=== PATIENT | male | born 1975 | race American Indian/Alaskan Native ===

== ENCOUNTER 2016-08-14 20:28 | Emergency (ER) | payer SELFPAY ==
[2016-08-14] MEDS ORDERED: TYLENOL ONE (20:32)
[2016-08-14] MEDS ORDERED: TYLENOL PO ONE (20:43)
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
[2016-08-14] MEDS ORDERED: ROXICODONE PO ONE (23:57)
[2016-08-14] MEDS ORDERED: CATAPRES PO ONE (23:57)
[2016-08-15 00:50] LABS: Basophils % (Auto) 0.4 % (0.0-1.8); Eosinophils % (Auto) 1.9 % (0.0-4.3); Hematocrit 50.5 % (35.5-45.6); Hemoglobin 16.5 gm/dl (11.8-15.2); Mean Corpuscular HGB Conc 33 % (32-34); Mean Corpuscular Hemoglobin 28 pg (28-32); Mean Corpuscular Volume 84 fl (84-94); Platelet Count 200 K/mm3 (140-440); Red Blood Count 6.01 M/mm3 (3.65-5.03); Red Cell Distribution Width 13.6 % (13.2-15.2); White Blood Count 4.4 K/mm3 (4.5-11.0)
[2016-08-15 01:04] LABS: Anion Gap 18 mmol/L; BUN/Creatinine Ratio 12.72; Blood Urea Nitrogen 14 mg/dL (9-20); Carbon Dioxide 25 mmol/L (22-30); Chloride 98.3 mmol/L (98-107); Creatine Kinase 205 units/L (55-170); Glucose 93 mg/dL (75-100); Potassium 3.5 mmol/L (3.6-5.0); Sodium 138 mmol/L (137-145)
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
[2016-08-15 02:52] VITALS: BP 162/90
== END 2016-08-15 02:53 | disposition home or self-care (01) ==
LOC: ED 20:28
DX: S41.111A Laceration without foreign body of right upper arm, initial encounter (principal); I16.0 Hypertensive urgency; N28.9 Disorder of kidney and ureter, unspecified; I10 Essential (primary) hypertension; V49.9XXA Car occupant (driver) (passenger) injured in unspecified traffic accident, initial encounter; Y93.89 Activity, other specified; Y99.8 Other external cause status; Y92.89 Other specified places as the place of occurrence of the external cause
CPT/HCPCS: 36415; 80048; 82550; 85025

== ENCOUNTER 2016-08-30 22:18 | Emergency (ER) | payer SELFPAY ==
[2016-08-30] MEDS ORDERED: CATAPRES ONE (22:38)
[2016-08-30] MEDS ORDERED: CATAPRES PO ONE (22:45)
[2016-08-30 23:21] LABS: Basophils % (Auto) 0.4 % (0.0-1.8); Eosinophils % (Auto) 1.6 % (0.0-4.3); Hematocrit 47.9 % (35.5-45.6); Hemoglobin 16.2 gm/dl (11.8-15.2); Mean Corpuscular HGB Conc 34 % (32-34); Mean Corpuscular Hemoglobin 29 pg (28-32); Mean Corpuscular Volume 84 fl (84-94); Platelet Count 195 K/mm3 (140-440); Red Blood Count 5.68 M/mm3 (3.65-5.03); Red Cell Distribution Width 13.5 % (13.2-15.2); White Blood Count 3.9 K/mm3 (4.5-11.0)
[2016-08-30 23:30] LABS: INR 0.92 (0.87-1.13); Partial Thromboplastin Time 25.2 Sec. (24.2-36.6)
[2016-08-30 23:42] LABS: Anion Gap 19 mmol/L; Blood Urea Nitrogen 13 mg/dL (9-20); Calcium 9.1 mg/dL (8.4-10.2); Carbon Dioxide 26 mmol/L (22-30); Chloride 98.9 mmol/L (98-107); Glucose 90 mg/dL (75-100); Potassium 3.7 mmol/L (3.6-5.0); Sodium 140 mmol/L (137-145)
[2016-08-31 01:15] VITALS: BP 173/114
--- NOTE | 2016-08-31 01:19 | Emergency Department Report ---
ED General Adult HPI - General Chief complaint: High BP Stated complaint: RT ARM PAIN Time Seen by Provider: 08/31/16 01:07 Source: patient, RN notes reviewed, old records reviewed Mode of arrival: Ambulatory Limitations: Physical Limitation - History of Present Illness Initial comments: This is a 40-year-old male. He is previously unknown to me. The patient presents to the ER with persistent right arm pain, and weakness in the right biceps muscle. The patient had a crush injury, which was treated at this hospital a few days ago. He was sutured up. He presents to the emergency department for suture removal. He denies headache, neck pain, chest pain, abdominal pain, shortness of breath, nausea, vomiting and diarrhea. The patient denies irritative and obstructive urinary symptoms, but does admit to painless hematuria. -: Gradual Location: right, upper extremity Severity scale (0 -10): 8 Quality: aching Consistency: constant Improves with: rest Worsens with: movement Associated Symptoms: denies: confusion, chest pain, cough, diaphoresis, fever/ chills, headaches, loss of appetite, malaise, nausea/vomiting, rash, shortness of breath, syncope, weakness - Related Data Home Medications Medication Instructions Recorded Confirmed Last Taken Lisinopril [Zestril] 20 mg PO QDAY 12/23/15 12/23/15 Unknown Metoprolol Xl [Metoprolol 50 mg PO QDAY 12/23/15 12/23/15 Unknown SUCCINATE ER TAB] amLODIPine [Norvasc] 5 mg PO DAILY 12/23/15 12/23/15 Unknown Previous Rx's Medication Instructions Recorded Last Taken Type Acetaminophen/Codeine [Tylenol 1 tab PO Q6H PRN #12 tab 08/15/16 Unknown Rx /Codeine # 3 tab] Allergies Allergy/AdvReac Type Severity Reaction Status Date / Time No Known Allergies Allergy Verified 12/23/15 00:00 ED Review of Systems ROS: Stated complaint: RT ARM PAIN Other details as noted in HPI Constitutional: denies: fever, malaise ENT: denies: dental pain, hearing loss, epistaxis Respiratory: denies: cough Cardiovascular: denies: chest pain Gastrointestinal: denies: abdominal pain Genitourinary: hematuria. denies: urgency, dysuria Musculoskeletal: arthralgia, myalgia Skin: denies: lesions Neurological: weakness ED Past Medical Hx - Past Medical History Previous Medical History?: Yes Hx Hypertension: Yes - Surgical History Past Surgical History?: No - Social History Smoking Status: Never Smoker Substance Use Type: None - Medications Home Medications: Home Medications Medication Instructions Recorded Confirmed Last Taken Type Lisinopril [Zestril] 20 mg PO QDAY 12/23/15 12/23/15 Unknown History Metoprolol Xl [Metoprolol 50 mg PO QDAY 12/23/15 12/23/15 Unknown History SUCCINATE ER TAB] amLODIPine [Norvasc] 5 mg PO DAILY 12/23/15 12/23/15 Unknown History Acetaminophen/Codeine [Tylenol 1 tab PO Q6H PRN #12 tab 08/15/16 Unknown Rx /Codeine # 3 tab] ED Physical Exam - General Limitations: No Limitations General appearance: alert, in no apparent distress - Head Head exam: Present: atraumatic, normocephalic - Eye Eye exam: Present: normal appearance, EOMI. Absent: nystagmus - ENT ENT exam: Present: normal exam, normal orophraynx, mucous membranes moist, normal external ear exam - Neck Neck exam: Present: normal inspection, full ROM. Absent: tenderness, meningismus - Respiratory Respiratory exam: Present: normal lung sounds bilaterally. Absent: respiratory distress, wheezes, rales, rhonchi, stridor, chest wall tenderness, accessory muscle use, decreased breath sounds, prolonged expiratory - Cardiovascular Cardiovascular Exam: Present: regular rate, normal rhythm, normal heart sounds. Absent: bradycardia, tachycardia, irregular rhythm, systolic murmur, diastolic murmur, rubs, gallop - GI/Abdominal GI/Abdominal exam: Present: soft, normal bowel sounds. Absent: distended, tenderness, guarding, rebound, rigid, pulsatile mass - Rectal Rectal exam: Present: deferred - Extremities Exam Extremities exam: Present: tenderness (there is tenderness in the right biceps.) , normal capillary refill, other (there is full range of motion to the left upper extremity, into the bilateral lower extremities.). Absent: normal inspection (there is a deformity in the proximal right biceps, when compared to the left side. There is weakness in the right biceps when compared to the left bicep. 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 Sensation is intact to light touch in the deltoid, median, radial, ulnar distribution bilaterally. 2+ pulses noted in the bilateral upper extremities, and the compartments are soft.), full ROM, pedal edema, joint swelling, calf tenderness - Back Exam Back exam: Present: normal inspection, full ROM. Absent: tenderness, CVA tenderness (R), CVA tenderness (L), muscle spasm, paraspinal tenderness, vertebral tenderness - Neurological Exam Neurological exam: Present: alert, oriented X3, normal gait, other (Extraocular movements intact. Tongue midline. No facial droop. Facial sensation intact to light touch in the V1, V2, V3 distribution bilaterally. 5 and 5 strength in 4 extremities.. Sensation is intact to light touch in 4 extremities.). Absent : motor sensory deficit - Psychiatric Psychiatric exam: Present: normal affect, normal mood - Skin Skin exam: Present: warm, dry, intact, normal color, other (sutures are noted in the right upper extremity). Absent: rash ED Course Vital Signs 08/30/16 08/30/16 08/31/16 22:40 22:42 00:14 Temperature 98.6 F Pulse Rate 88 100 H 89 Respiratory 18 23 Rate Blood Pressure 231/158 Blood Pressure [Left] Blood Pressure 231/158 [Right] O2 Sat by Pulse 97 97 Oximetry 08/31/16 08/31/16 08/31/16 00:20 00:26 00:30 Temperature Pulse Rate 89 86 88 Respiratory 22 23 15 Rate Blood Pressure 180/116 180/116 168/118 Blood Pressure [Left] Blood Pressure [Right] O2 Sat by Pulse 98 98 98 Oximetry 08/31/16 08/31/16 08/31/16 00:31 00:34 00:36 Temperature 98.5 F Pulse Rate 89 84 Respiratory 16 16 16 Rate Blood Pressure 168/118 Blood Pressure 178/126 [Left] Blood Pressure [Right] O2 Sat by Pulse 97 98 Oximetry 08/31/16 08/31/16 08/31/16 00:40 00:45 00:50 Temperature Pulse Rate 93 H 85 84 Respiratory 19 20 21 Rate Blood Pressure 168/118 176/124 176/124 Blood Pressure [Left] Blood Pressure [Right] O2 Sat by Pulse 98 98 98 Oximetry 08/31/16 08/31/16 08/31/16 00:56 01:00 01:06 Temperature Pulse Rate 81 80 82 Respiratory 16 23 13 Rate Blood Pressure 176/124 173/114 173/114 Blood Pressure [Left] Blood Pressure [Right] O2 Sat by Pulse 98 97 Oximetry - Reevaluation(s) Reevaluation #1: 08/31/16 02:06 Differential diagnosis: Suture removal, subacute biceps tendon rupture, poorly controlled hypertension, and painless hematuria Assessment and plan: 40-year-old male here for suture removal which I did, without complication, who clinically presents with a subacute biceps tendon rupture, poorly controlled hypertension, and painless hematuria. The patient will be placed in a sling. He is instructed to follow up with outpatient orthopedics. His blood pressure improved while in the emergency department, there is no chest pain or shortness of breath, troponin is sent prior to my evaluation, but as the patient does not have symptoms consistent with acute coronary syndrome, I do not believe he requires an in-hospital acute coronary syndrome risk stratification and evaluation. He should follow up with her primary care doctor for his hypertension/elevated blood pressure. Painless hematuria is appreciated, the patient denies testicular pain, and irritative/obstructive urinary symptoms. The patient should follow-up with an outpatient urology specialist. ED Medical Decision Making - Lab Data Result diagrams: 08/30/16 23:07 08/30/16 23:07 Vital Signs 08/30/16 08/30/16 08/31/16 22:40 22:42 00:14 Temperature 98.6 F Pulse Rate 88 100 H 89 Respiratory 18 23 Rate Blood Pressure 231/158 Blood Pressure [Left] Blood Pressure 231/158 [Right] O2 Sat by Pulse 97 97 Oximetry 08/31/16 08/31/16 08/31/16 00:20 00:26 00:30 Temperature Pulse Rate 89 86 88 Respiratory 22 23 15 Rate Blood Pressure 180/116 180/116 168/118 Blood Pressure [Left] Blood Pressure [Right] O2 Sat by Pulse 98 98 98 Oximetry 08/31/16 08/31/16 08/31/16 00:31 00:34 00:36 Temperature 98.5 F Pulse Rate 89 84 Respiratory 16 16 16 Rate Blood Pressure 168/118 Blood Pressure 178/126 [Left] Blood Pressure [Right] O2 Sat by Pulse 97 98 Oximetry 08/31/16 08/31/16 08/31/16 00:40 00:45 00:50 Temperature Pulse Rate 93 H 85 84 Respiratory 19 20 21 Rate Blood Pressure 168/118 176/124 176/124 Blood Pressure [Left] Blood Pressure [Right] O2 Sat by Pulse 98 98 98 Oximetry 08/31/16 08/31/16 08/31/16 00:56 01:00 01:06 Temperature Pulse Rate 81 80 82 Respiratory 16 23 13 Rate Blood Pressure 176/124 173/114 173/114 Blood Pressure [Left] Blood Pressure [Right] O2 Sat by Pulse 98 97 Oximetry Labs 08/30/16 08/30/16 08/30/16 23:07 23:07 23:07 WBC 3.9 L RBC 5.68 H Hgb 16.2 H Hct 47.9 H MCV 84 MCH 29 MCHC 34 RDW 13.5 Plt Count 195 Lymph % (Auto) 33.4 [place] % (Auto) 11.0 H Eos % (Auto) 1.6 Baso % (Auto) 0.4 Lymph # 1.3 [place] # 0.4 Eos # 0.1 Baso # 0.0 Seg Neutrophils % 53.6 Seg Neutrophils # 2.1 PT 12.3 INR 0.92 APTT 25.2 Sodium 140 Potassium 3.7 Chloride 98.9 Carbon Dioxide 26 Anion Gap 19 BUN 13 Creatinine 1.3 Estimated GFR > 60 BUN/Creatinine Ratio 10.00 Glucose 90 Calcium 9.1 Troponin T < 0.010 Urine Color Urine Turbidity Urine pH Ur Specific [place] Urine Protein Urine Glucose (UA) Urine Ketones Urine Blood Urine Nitrite Urine Bilirubin Urine Urobilinogen Ur Leukocyte Esterase Urine WBC (Auto) Urine RBC (Auto) U Epithel Cells (Auto) 08/30/16 23:58 WBC RBC Hgb Hct MCV MCH MCHC RDW Plt Count Lymph % (Auto) [place] % (Auto) Eos % (Auto) Baso % (Auto) Lymph # [place] # Eos # Baso # Seg Neutrophils % Seg Neutrophils # PT INR APTT Sodium Potassium Chloride Carbon Dioxide Anion Gap BUN Creatinine Estimated GFR BUN/Creatinine Ratio Glucose Calcium Troponin T Urine Color Yellow Urine Turbidity Clear Urine pH 6.0 Ur Specific [place] 1.020 Urine Protein <15 mg/dl Urine Glucose (UA) Neg Urine Ketones Neg Urine Blood Mod Urine Nitrite Neg Urine Bilirubin Neg Urine Urobilinogen 2.0 Ur Leukocyte Esterase Neg Urine WBC (Auto) 2.0 Urine RBC (Auto) 99.0 U Epithel Cells (Auto) < 1.0 - EKG Data -: EKG Interpreted by Ct EKG shows normal: sinus rhythm Rate: normal - EKG Data 08/31/16 02:08 normal sinus, 88 bpm, normal intervals, normal axis, premature ventricular contractions, nonspecific T-wave abnormality, high left ventricular voltage, not morphologically consistent with STEMI, appears unchanged when compared to prior EKG from December 2015 Critical care attestation.: If time is entered above; I have spent that time in minutes in the direct care of this critically ill patient, excluding procedure time. ED Disposition Clinical Impression: Hematuria, Right arm pain, Elevated blood pressure reading Disposition: DISCHARGED TO HOME OR SELFCARE Is pt being admited?: No Does the pt Need Aspirin: No Condition: Stable Instructions: Repairs of the Biceps and Triceps Tendons (ED), Acute Hematuria ( ED), Hypertension (ED) Additional Instructions: Laboratory studies were unremarkable. Physical exam suggestive of ruptured right-sided biceps tendon. Follow up with an orthopedic surgeon within the next week for this. Rest and avoid heavy lifting, and not use the right upper extremity for any tasks unless cleared by an orthopedic surgeon. Blood pressure was noted to be elevated while in the emergency department. Follow-up with the primary care doctor within the next 10-14 days for elevated blood pressure. Long-term complications of hypertension/elevated blood pressure includes stroke, heart attack, disability, , paralysis, loss of quality of life. Dr. David Rabago is a local primary care doctor. Dr. Gómez is a local orthopedic surgeon. Cultures was sent today of the urine, results will be available next 3-5 days. Have a primary care doctor or urology specialist contact the medical records department to obtain culture results. Follow up with the urology specialist within the next month. Dr. Ayers is a local urology specialist. Not following up with urology in a timely fashion may result in an undiagnosed cancer/tumor/malignancy of the urinary tract. Please return to the ER right away with new pain, worsened pain, migration of pain, fevers, chills, chest pain, shortness of breath, confusion, intractable nausea or vomiting, inability to tolerate liquid feeds. Take acetaminophen or ibuprofen [id number] as needed for pain. Referrals: PRIMARY CAREMD [Primary Care Provider] - 3-5 Days DAVID RABAGO MD [Staff Physician] - 3-5 Days HORACIO GÓMEZ MD [Staff Physician] - 3-5 Days SHARON AYERS MD [Staff Physician] - 3-5 Days Forms: Work/School Release Form(ED)
[2016-08-31 01:20] LABS: Bilirubin,Urine NEG (Negative); Blood,Urine MOD (Negative); Ketones,Urine NEG (Negative); Leukocyte Esterase,Urine NEG (Negative); Nitrite,Urine NEG (Negative); Protein,Urine <15 mg/dL mg/dL (Negative)
== END 2016-08-31 02:24 | disposition home or self-care (01) ==
LOC: ED 22:18
DX: M79.601 Pain in right arm (principal); R31.9 Hematuria, unspecified; I10 Essential (primary) hypertension
CPT/HCPCS: 36415; 80048; 81001; 84484; 85025; 85610; 85730; 87086; 93005; 93010

== ENCOUNTER 2020-01-01 11:58 | Emergency (ER) | payer SELFPAY | END 2020-01-01 12:00 | disposition left against medical advice (07) | LOC: ED 11:58 | DX: R00.0 Tachycardia, unspecified (principal); Z53.21 Procedure and treatment not carried out due to patient leaving prior to being seen by health care provider ==

== ENCOUNTER 2020-03-06 05:28 | Observation (INO) | payer SELFPAY ==
[2020-03-06] MEDS ORDERED: ASPIRIN 325 MG TAB PO ONE (05:58)
--- NOTE | 2020-03-06 06:31 | XRay Report ---
CHEST 1 VIEW INDICATION / CLINICAL INFORMATION: Chest Pain. COMPARISON: Chest radiograph 12/19/2019 FINDINGS: SUPPORT DEVICES: None. HEART / MEDIASTINUM: Stable mild cardiomegaly. LUNGS / PLEURA: No significant pulmonary or pleural abnormality. No pneumothorax. ADDITIONAL FINDINGS: No significant additional findings. IMPRESSION: 1. No acute findings and no significant change. Signer Name: Jennifer Benjamin MD Signed: 03/06/2020 6:26 AM Workstation Name: [id number]
[2020-03-06 06:40] LABS: Hematocrit 47.9 % (35.5-45.6); Mean Corpuscular HGB Conc 33 % (32-34); Mean Corpuscular Volume 84 fl (84-94); Platelet Count 145 K/mm3 (140-440); Red Cell Distribution Width 14.5 % (13.2-15.2)
[2020-03-06 06:50] LABS: INR 1.08 (0.87-1.13); Partial Thromboplastin Time 28.5 Sec. (24.2-36.6)
--- NOTE | 2020-03-06 06:53 | Emergency Department Report ---
ED Chest Pain HPI - General Chief Complaint: Chest Pain Stated Complaint: CHEST PAIN Time Seen by Provider: 03/06/20 06:15 Source: patient, EMS Mode of arrival: Stretcher Limitations: No Limitations - History of Present Illness Initial Comments: This is a 44-year-old male who states he goes to the [facility] [place] [facility]. He states he experienced chest pain for the first time this a.m. He describes it as a left pectoral nonradiating tightness that lasted for 15 minutes. Called EMS. He was given nitroglycerin and aspirin. He states he was a bit sweaty and nauseated but did not vomit. He denies having a previous stress test. However on 12/22/2019 he had a nuclear perfusion study that was read as negative for reversible ischemia by Dr. Ace, the clinical data coordinator, that saw him here during his recent hospitalization. At the time of my encounter, he is asymptomatic. Patient does have chronic A. fib. He confirms that he is compliant with his Eliquis. He is on various medications for his "nonischemic cardiomyopathy" and congestive heart failure/hypertension. 12/19 Cardiology consultation: - Patient Problems (1) Atrial fibrillation with RVR Current Visit: Yes Status: Acute Plan to address problem: new onset (2) Non-ischemic cardiomyopathy Current Visit: Yes Status: Acute (3) Acute HFrEF (heart failure with reduced ejection fraction) Current Visit: Yes Status: Acute Plan to address problem: new onset (4) ANNALISE (acute kidney injury) Current Visit: Yes Status: Acute (5) Elevated LFTs Current Visit: No Status: Acute (6) HTN (hypertension) Current Visit: Yes Status: Chronic Qualifiers: Hypertension type: essential hypertension Qualified Code(s): I10 - Essential (primary) hypertension (7) Elevated TSH Current Visit: Yes Status: Acute Plan to address problem: TSH and T4 elevated - will defer to Primary (8) Morbid obesity Current Visit: Yes Status: Chronic (9) HUONG (obstructive sleep apnea) Current Visit: Yes Status: Suspected MD Complaint: chest pain Severity scale (0 -10): 3 Quality: tightness Consistency: now resolved Improves With: nothing Worsens With: nothing Context: other (Nonischemic cardiomyopathy) re: dyspnea, other (Sweating and some nausea) Other Symptoms: denies: cough, fever, syncope Treatments Prior to Arrival: aspirin, nitroglycerin Aspirin use within the Past 7 Days: (0) No - Related Data On Oral Contraceptives: No Previous Rx's Medication Instructions Recorded Last Taken Type Ondansetron [Zofran ODT TAB] 4 mg PO Q8HR PRN #15 tab.rapdis 12/10/19 Unknown Rx traMADoL [Ultram 50 MG tab] 50 mg PO Q6HR PRN #10 tablet 12/10/19 Unknown Rx Apixaban [Eliquis] 5 mg PO Q12HR #60 tablet 12/23/19 Unknown Rx Furosemide [Lasix TAB] 40 mg PO QDAY #60 tablet 12/23/19 Unknown Rx Metoprolol [Lopressor TAB] 100 mg PO BID #60 tablet 12/23/19 Unknown Rx Spironolactone [Aldactone] 25 mg PO QDAY #60 tablet 12/23/19 Unknown Rx hydrALAZINE [Apresoline TAB] 25 mg PO Q8HR #90 tab 12/23/19 Unknown Rx lisinopriL [Zestril TAB] 20 mg PO QDAY #30 12/23/19 Unknown Rx Allergies Allergy/AdvReac Type Severity Reaction Status Date / Time lisinopril Allergy Swelling Verified 03/06/20 05:58 Heart Score - HEART Score History: Moderately suspicious EKG: Non-specific Age: < 45 Risk factors: 1-2 risk factors Troponin: < normal limit HEART Score: 3 - Critical Actions Critical Actions: 0-3 pts:0.9-1.7%risk of adverse cardiac event.Candidate for discharge ED Review of Systems ROS: Stated complaint: CHEST PAIN Other details as noted in HPI Constitutional: denies: chills, fever Eyes: denies: eye pain, vision change ENT: denies: ear pain, throat pain Respiratory: shortness of breath. denies: cough, wheezing Cardiovascular: as per HPI, chest pain. denies: palpitations Endocrine: no symptoms reported Gastrointestinal: nausea (With episode). denies: abdominal pain, vomiting, diarrhea Genitourinary: denies: urgency, dysuria Musculoskeletal: denies: back pain, arthralgia Skin: denies: rash, lesions Neurological: denies: headache, weakness, paresthesias Psychiatric: denies: anxiety, depression Hematological/Lymphatic: denies: easy bleeding, easy bruising ED Past Medical Hx - Past Medical History Previous Medical History?: Yes Hx Hypertension: Yes Hx Congestive Heart Failure: Yes Hx Renal Disease: Yes (Left kidney) Hx HIV: No Additional medical history: A-fib. High Cholesterol - Surgical History Past Surgical History?: No - Social History Smoking Status: Never Smoker Substance Use Type: None - Medications Home Medications: Home Medications Medication Instructions Recorded Confirmed Last Taken Type Ondansetron [Zofran ODT TAB] 4 mg PO Q8HR PRN #15 tab.rapdis 12/10/19 12/20/19 Unknown Rx traMADoL [Ultram 50 MG tab] 50 mg PO Q6HR PRN #10 tablet 12/10/19 12/20/19 Unknown Rx Apixaban [Eliquis] 5 mg PO Q12HR #60 tablet 12/23/19 Unknown Rx Furosemide [Lasix TAB] 40 mg PO QDAY #60 tablet 12/23/19 Unknown Rx Metoprolol [Lopressor TAB] 100 mg PO BID #60 tablet 12/23/19 Unknown Rx Spironolactone [Aldactone] 25 mg PO QDAY #60 tablet 12/23/19 Unknown Rx hydrALAZINE [Apresoline TAB] 25 mg PO Q8HR #90 tab 12/23/19 Unknown Rx lisinopriL [Zestril TAB] 20 mg PO QDAY #30 12/23/19 Unknown Rx ED Physical Exam - General Limitations: No Limitations General appearance: alert, in no apparent distress - Head Head exam: Present: atraumatic, normocephalic - Eye Eye exam: Present: normal appearance. Absent: scleral icterus - ENT ENT exam: Present: mucous membranes moist - Neck Neck exam: Present: normal inspection - Respiratory Respiratory exam: Present: normal lung sounds bilaterally. Absent: respiratory distress - Cardiovascular Cardiovascular Exam: Present: regular rate, irregular rhythm. Absent: systolic murmur, diastolic murmur, rubs, gallop - GI/Abdominal GI/Abdominal exam: Present: soft, normal bowel sounds. Absent: distended, tenderness, guarding, rebound - Rectal Rectal exam: Present: deferred - Extremities Exam Extremities exam: Present: normal inspection - Back Exam Back exam: Present: normal inspection - Neurological Exam Neurological exam: Present: alert, oriented X3, CN II-XII intact. Absent: motor sensory deficit - Psychiatric Psychiatric exam: Present: normal affect, normal mood - Skin Skin exam: Present: warm, dry, intact, normal color. Absent: rash ED Course Vital Signs 03/06/20 03/06/20 03/06/20 05:38 05:46 06:00 Temperature 98.6 F Pulse Rate 90 84 72 Respiratory 25 H 17 15 Rate Blood Pressure 151/99 151/99 O2 Sat by Pulse 96 99 100 Oximetry 03/06/20 03/06/20 03/06/20 06:30 06:37 07:00 Temperature Pulse Rate 65 79 Respiratory 13 18 19 Rate Blood Pressure 143/89 121/87 O2 Sat by Pulse 99 100 Oximetry 03/06/20 03/06/20 07:30 08:00 Temperature Pulse Rate 84 79 Respiratory 23 31 H Rate Blood Pressure 114/94 122/74 O2 Sat by Pulse 100 Oximetry - Reevaluation(s) Reevaluation #1: Patient states he has been having some recurrent chest pain. Admitted by Hospitalist service. 03/06/20 10:13 RANDALL score - Randall Score Age > 65: (0) No Aspirin use within the Past 7 Days: (0) No 3 or more CAD Risk Factors: (0) No 2 or more Angina events in past 24 hrs: (0) No Known CAD with more than 50% Stenosis: (0) No Elevated Cardiac Markers: (0) No ST Deviation Greater than 0.5mm: (0) No RANDALL Score: 0 ED Medical Decision Making - Lab Data Result diagrams: 03/06/20 06:31 03/06/20 06:31 Laboratory Results - last 24 hr 03/06/20 03/06/20 03/06/20 06:31 06:31 06:31 WBC 3.7 L RBC 5.70 H Hgb 16.0 H Hct 47.9 H MCV 84 MCH 28 MCHC 33 RDW 14.5 Plt Count 145 Winn % (Auto) Tripe Washer PT 13.9 INR 1.08 APTT 28.5 Sodium 140 Potassium 3.9 Chloride 105.2 Carbon Dioxide 24 Anion Gap 15 BUN 14 Creatinine 1.4 H Estimated GFR > 60 BUN/Creatinine Ratio 10 Glucose 120 H Calcium 8.8 Magnesium Total Bilirubin Direct Bilirubin Indirect Bilirubin AST ALT Alkaline Phosphatase Troponin T < 0.010 NT-Pro-B Natriuret Pep Total Protein Albumin Albumin/Globulin Ratio 03/06/20 06:31 WBC RBC Hgb Hct MCV MCH MCHC RDW Plt Count Winn % (Auto) PT INR APTT Sodium Potassium Chloride Carbon Dioxide Anion Gap BUN Creatinine Estimated GFR BUN/Creatinine Ratio Glucose Calcium Magnesium 1.90 Total Bilirubin 1.00 Direct Bilirubin 0.2 Indirect Bilirubin 0.8 AST 32 ALT 35 Alkaline Phosphatase 75 Troponin T NT-Pro-B Natriuret Pep 2578 H Total Protein 6.4 Albumin 3.7 L Albumin/Globulin Ratio 1.4 Laboratory Results - last 24 hr 03/06/20 03/06/20 03/06/20 06:31 06:31 06:31 WBC 3.7 L RBC 5.70 H Hgb 16.0 H Hct 47.9 H MCV 84 MCH 28 MCHC 33 RDW 14.5 Plt Count 145 Winn % (Auto) Tripe Washer PT 13.9 INR 1.08 APTT 28.5 D-Dimer < 135.00 Sodium 140 Potassium 3.9 Chloride 105.2 Carbon Dioxide 24 Anion Gap 15 BUN 14 Creatinine 1.4 H Estimated GFR > 60 BUN/Creatinine Ratio 10 Glucose 120 H Calcium 8.8 Magnesium Total Bilirubin Direct Bilirubin Indirect Bilirubin AST ALT Alkaline Phosphatase Troponin T < 0.010 NT-Pro-B Natriuret Pep Total Protein Albumin Albumin/Globulin Ratio 03/06/20 03/06/20 06:31 08:46 WBC RBC Hgb Hct MCV MCH MCHC RDW Plt Count Winn % (Auto) PT INR APTT D-Dimer Sodium Potassium Chloride Carbon Dioxide Anion Gap BUN Creatinine Estimated GFR BUN/Creatinine Ratio Glucose Calcium Magnesium 1.90 Total Bilirubin 1.00 Direct Bilirubin 0.2 Indirect Bilirubin 0.8 AST 32 ALT 35 Alkaline Phosphatase 75 Troponin T < 0.010 NT-Pro-B Natriuret Pep 2578 H Total Protein 6.4 Albumin 3.7 L Albumin/Globulin Ratio 1.4 - EKG Data -: EKG Interpreted by Pr Rate: normal - EKG Data Interpretation: other (Atrial fibrillation controlled ventricular response, left axis deviation, poor R wave progression, LVH) - Radiology Data Radiology results: report reviewed, image reviewed HEART / MEDIASTINUM: Stable mild cardiomegaly. LUNGS / PLEURA: No significant pulmonary or pleural abnormality. No pneumothorax. ADDITIONAL FINDINGS: No significant additional findings. IMPRESSION: 1. No acute findings and no significant change. Critical care attestation.: If time is entered above; I have spent that time in minutes in the direct care of this critically ill patient, excluding procedure time. ED Disposition Clinical Impression: Chronic renal insufficiency, stage II (mild) Chest pain Qualifiers: Chest pain type: unspecified Qualified Code(s): R07.9 - Chest pain, unspecified Cardiomyopathy Qualifiers: Cardiomyopathy type: unspecified Qualified Code(s): I42.9 - Cardiomyopathy, unspecified Disposition: DC-09 OP ADMIT IP TO THIS HOSP Is pt being admited?: Yes Does the pt Need Aspirin: Yes (Given in the field) Condition: Stable Instructions: Chest Pain (ED) Referrals: PRIMARY CARE,MD [Primary Care Provider] - 3-5 Days
[2020-03-06 07:14] LABS: BUN/Creatinine Ratio 10; Blood Urea Nitrogen 14 mg/dL (9-20); Calcium 8.8 mg/dL (8.4-10.2); Hemolysis Index 80
[2020-03-06 07:16] LABS: Albumin 3.7 g/dL (3.9-5); Bilirubin,Direct 0.2 mg/dL (0-0.2)
[2020-03-06] MEDS ORDERED: ONDANSETRON 4 MG/2 ML INJ IV PRN (10:24)
[2020-03-06] MEDS ORDERED: ACETAMINOPHEN 325 MG TAB PO PRN (10:24)
[2020-03-06] MEDS ORDERED: ALBUTEROL 2.5 MG/3 ML NEBU IH PRN (10:24)
[2020-03-06] MEDS ORDERED: MORPHINE 2 MG/1 ML INJ IV PRN (10:24)
--- NOTE | 2020-03-06 10:32 | History and Physical Report ---
History of Present Illness Date of examination: 03/06/20 Date of admission: 03/06/20 Chief complaint: Left-sided chest pain History of present illness: Patient is a 44-year-old -[place] male with known history of hypertension and obesity presenting to the emergency room today complaining of left-sided chest pain which he states is sudden onset. With associated shortness of breath woke him up from sleep today. Patient has had multiple admissions and otherwise normally followed at [facility]. He is supposed to be on a LifeVest and last time he was here stated that he wanted this to be done outpatient. Unfortunately he still does not have the LifeVest. His last known EF was around 15%. He reports compliance with all his medications denies any swelling in his lower extremity. In the ED his blood pressure was noted to be normal vitals at this time. Previous hospitalization indicated elevated liver exams which work-up was unremarkable except for noted possible passive congestion from his underlying heart failure. He is also has had significant problem with uncontrolled hypertension. He denies any nausea vomiting or diarrhea chest pain on the left side is reproducible. He denies any tobacco use. Past History Past Medical History: atrial fib, heart failure, hyperthyroidism, hypertension, other Past Surgical History: No surgical history Social history: no significant social history. denies: smoking, alcohol abuse, IV drug use Family history: no significant family history Medications and Allergies Allergies Allergy/AdvReac Type Severity Reaction Status Date / Time lisinopril Allergy Swelling Verified 03/06/20 05:58 Home Medications Medication Instructions Recorded Confirmed Last Taken Type Ondansetron [Zofran ODT TAB] 4 mg PO Q8HR PRN #15 tab.rapdis 12/10/19 12/20/19 Unknown Rx traMADoL [Ultram 50 MG tab] 50 mg PO Q6HR PRN #10 tablet 12/10/19 12/20/19 Unknown Rx Apixaban [Eliquis] 5 mg PO Q12HR #60 tablet 12/23/19 Unknown Rx Furosemide [Lasix TAB] 40 mg PO QDAY #60 tablet 12/23/19 Unknown Rx Metoprolol [Lopressor TAB] 100 mg PO BID #60 tablet 12/23/19 Unknown Rx Spironolactone [Aldactone] 25 mg PO QDAY #60 tablet 12/23/19 Unknown Rx hydrALAZINE [Apresoline TAB] 25 mg PO Q8HR #90 tab 12/23/19 Unknown Rx lisinopriL [Zestril TAB] 20 mg PO QDAY #30 12/23/19 Unknown Rx Active Meds: Active Medications Acetaminophen (Tylenol) 650 mg PO Q6H PRN PRN Reason: Pain, Mild (1-3) Albuterol (Proventil) 2.5 mg IH Q4HRT PRN PRN Reason: Shortness Of Breath Apixaban (Eliquis) 5 mg PO Q12HR [facility]; Protocol Aspirin (Ecotrin) 325 mg PO QDAY [facility] Atorvastatin Calcium (Lipitor) 40 mg PO QHS [facility] Famotidine (Pepcid) 20 mg IV BID [facility] Furosemide (Lasix) 40 mg IV BID@0600,1800 [facility] Isosorbide Dinitrate (Isordil) 20 mg PO Q8HR [facility] Lisinopril (Zestril) 20 mg PO QDAY [facility] Metoprolol Tartrate (Metoprolol) 100 mg PO BID [facility] Morphine Sulfate (Morphine) 2 mg IV Q4H PRN PRN Reason: Pain, Moderate (4-6) Ondansetron HCl (Zofran) 4 mg IV Q8H PRN PRN Reason: Nausea And Vomiting Sodium Chloride (Sodium Chloride Flush Syringe 10 Ml) 10 ml IV PRN PRN PRN Reason: LINE FLUSH Spironolactone (Aldactone) 25 mg PO QDAY [facility] Review of Systems All systems: negative Constitutional: no weight loss, no weight gain, no fever, no chills Cardiovascular: chest pain (Reproducible), shortness of breath, no edema, no syncope, no lightheadedness Respiratory: shortness of breath, dyspnea on exertion, no cough, no cough with sputum, no congestion, no wheezing, no pleurisy Musculoskeletal: no neck pain, no arm numbness/tingling, no muscle weakness, no myalgias, no atrophy Integumentary: no redness, no jaundice, no boils Exam - Physical Exam Narrative exam: VITAL SIGNS: Reviewed. GENERAL: The patient appears normally developed, Vital signs as documented. HEAD: No signs of head trauma. EYES: Pupils are equal. Extraocular motions intact. EARS: Hearing grossly intact. MOUTH: Oropharynx is normal. NECK: No adenopathy, no JVD. CHEST: Chest with clear breath sounds bilaterally. No wheezes, rales, or rhonchi. CARDIAC: Regular rate and rhythm. S1 and S2, without murmurs, gallops, or rubs. VASCULAR: No Edema. Peripheral pulses normal and equal in all extremities. ABDOMEN: Soft, non tender and non distended. No rebound or guarding, and no masses palpated. Bowel Sounds normal. MUSCULOSKELETAL: Tender to touch on the left pericardium area. Good range of motion of all major joints. Extremities without clubbing, cyanosis or edema. NEUROLOGIC EXAM: Alert and oriented x 3 No focal sensory or strength deficits. Speech normal. Follows commands. PSYCHIATRIC: Mood normal. SKIN: Multiple tattoos detail exam as documented in skin assessment - Constitutional Vitals: Temp Pulse Resp BP Pulse Ox 98.6 F 79 31 H 122/74 100 03/06/20 05:46 03/06/20 08:00 03/06/20 08:00 03/06/20 08:00 03/06/20 07:30 HEART Score - HEART Score EKG: Non-specific Age: < 45 Risk factors: 1-2 risk factors Troponin: Troponin T < 0.010 ng/mL (0.00-0.029) 03/06/20 08:46 Troponin: < normal limit - Critical Actions Critical Actions: 0-3 pts:0.9-1.7%risk of adverse cardiac event.Candidate for discharge Results - Labs CBC & Chem 7: 03/06/20 06:31 03/06/20 06:31 Labs: Laboratory Last Values WBC 3.7 K/mm3 (4.5-11.0) L 03/06/20 06:31 RBC 5.70 M/mm3 (3.65-5.03) H 03/06/20 06:31 Hgb 16.0 gm/dl (11.8-15.2) H 03/06/20 06:31 Hct 47.9 % (35.5-45.6) H 03/06/20 06:31 MCV 84 fl (84-94) 03/06/20 06:31 MCH 28 pg (28-32) 03/06/20 06:31 MCHC 33 % (32-34) 03/06/20 06:31 RDW 14.5 % (13.2-15.2) 03/06/20 06:31 Plt Count 145 K/mm3 (140-440) 03/06/20 06:31 Bland % (Auto) [employer] 03/06/20 06:31 PT 13.9 Sec. (12.2-14.9) 03/06/20 06:31 INR 1.08 (0.87-1.13) 03/06/20 06:31 APTT 28.5 Sec. (24.2-36.6) 03/06/20 06:31 D-Dimer < 135.00 ng/mlDDU (0-234) 03/06/20 06:31 Sodium 140 mmol/L (137-145) 03/06/20 06:31 Potassium 3.9 mmol/L (3.6-5.0) 03/06/20 06:31 Chloride 105.2 mmol/L (98-107) 03/06/20 06:31 Carbon Dioxide 24 mmol/L (22-30) 03/06/20 06:31 Anion Gap 15 mmol/L 03/06/20 06:31 BUN 14 mg/dL (9-20) 03/06/20 06:31 Creatinine 1.4 mg/dL (0.8-1.3) H 03/06/20 06:31 Estimated GFR > 60 ml/min 03/06/20 06:31 BUN/Creatinine Ratio 10 % 03/06/20 06:31 Glucose 120 mg/dL (75-100) H 03/06/20 06:31 Calcium 8.8 mg/dL (8.4-10.2) 03/06/20 06:31 Magnesium 1.90 mg/dL (1.7-2.3) 03/06/20 06:31 Total Bilirubin 1.00 mg/dL (0.1-1.2) 03/06/20 06:31 Direct Bilirubin 0.2 mg/dL (0-0.2) 03/06/20 06:31 Indirect Bilirubin 0.8 mg/dL 03/06/20 06:31 AST 32 units/L (5-40) 03/06/20 06:31 ALT 35 units/L (7-56) 03/06/20 06:31 Alkaline Phosphatase 75 units/L (35-129) 03/06/20 06:31 Troponin T < 0.010 ng/mL (0.00-0.029) 03/06/20 08:46 NT-Pro-B Natriuret Pep 2578 pg/mL (0-450) H 12 06:31 Total Protein 6.4 g/dL (6.3-8.2) 03/06/20 06:31 Albumin 3.7 g/dL (3.9-5) L 03/06/20 06:31 Albumin/Globulin Ratio 1.4 % 12 06:31 Contreras/IV: IV Catheter Type [Left Hand] INT / Saline Lock Assessment and Plan Assessment and plan: Patient is a 44-year-old -[place] male with known history of hypertension and obesity presenting to the emergency room today complaining of left-sided chest pain which he states is sudden onset. With associated shortness of breath woke him up from sleep today. Patient has had multiple admissions and otherwise normally followed at [facility]. He is supposed to be on a LifeVest and last time he was here stated that he wanted this to be done outpatient. Unfortunately he still does not have the LifeVest. His last known EF was around 15%. He reports compliance with all his medications denies any swelling in his lower extremity. In the ED his blood pressure was noted to be normal vitals at this time. Previous hospitalization indicated elevated liver exams which work-up was unremarkable except for noted possible passive congestion from his underlying heart failure. He is also has had significant problem with uncontrolled hypertension. He denies any nausea vomiting or diarrhea chest pain on the left side is reproducible. He denies any tobacco use. Atypical chest pain rule out costochondritis Acute heart failure with reduced ejection fraction Medical noncompliance Morbid obesity Atrial fibrillation without RVR Obstructive sleep apnea Presumed hypothyroidism Nonischemic cardiomyopathy Plan Admit to telemetry Cardiac enzymes per chest pain protocol Pain control Strict I's and O's Resume appropriate home medications including all antihypertensives as patient does have preponderance of going into hypertensive urgency Extensive counseling to the patient Cardiology consultation Start on IV Lasix On discharge once again recommend outpatient sleep study DVT and GI prophylaxis Plan of care discussed in detail with the patient Advance Directives: Yes Plan of care discussed with patient/family: Yes
[2020-03-06 11:08] LABS: Total Cells Counted 100
[2020-03-06 11:09] LABS: Platelet Estimate Consistent w Auto; RBC Morphology Normal
[2020-03-06] MEDS ORDERED: APIXABAN 5 MG TAB ONE (12:19)
[2020-03-06] MEDS ORDERED: METOPROLOL TARTRATE 50 MG TAB ONE (12:19)
[2020-03-06] MEDS ORDERED: FAMOTIDINE 20 MG/2 ML INJ IV ONE (12:19)
[2020-03-06] MEDS: LISINOPRIL 20 MG TAB PO SCH (12:21)
[2020-03-06] MEDS: APIXABAN 5 MG TAB PO SCH ×2 (12:24→22:13)
[2020-03-06] MEDS: METOPROLOL TARTRATE 50 MG TAB PO SCH ×2 (12:25→22:13)
[2020-03-06] MEDS: FAMOTIDINE 20 MG/2 ML INJ IV SCH ×2 (12:28→22:13)
[2020-03-06] MEDS: ISOSORBIDE DINITRATE 20 MG TAB PO SCH ×2 (15:35→22:13)
[2020-03-06 16:38] LABS: BUN/Creatinine Ratio 11; Blood Urea Nitrogen 15 mg/dL (9-20); Calcium 8.6 mg/dL (8.4-10.2); Hemolysis Index 93
[2020-03-06] MEDS: FUROSEMIDE 40 MG/4 ML INJ IV SCH (17:33)
[2020-03-07] MEDS: FUROSEMIDE 40 MG/4 ML INJ IV SCH ×2 (05:41→17:02)
[2020-03-07] MEDS: ISOSORBIDE DINITRATE 20 MG TAB PO SCH ×2 (05:42→14:19)
[2020-03-07 06:03] LABS: Basophils % (Auto) 0.6 % (0.0-1.8); Eosinophils % (Auto) 1.1 % (0.0-4.3); Hematocrit 49.1 % (35.5-45.6); Hemoglobin 16.3 gm/dl (11.8-15.2); Lymphocytes # (Auto) 1.6 K/mm3 (1.2-5.4); Lymphocytes % (Auto) 35.5 % (13.4-35.0); Mean Corpuscular HGB Conc 33 % (32-34); Mean Corpuscular Volume 86 fl (84-94); Monocytes # (Auto) 0.7 K/mm3 (0.0-0.8); Monocytes % (Auto) 15.8 % (0.0-7.3); Platelet Count 149 K/mm3 (140-440); Red Blood Count 5.73 M/mm3 (3.65-5.03); Red Cell Distribution Width 14.8 % (13.2-15.2)
[2020-03-07 06:40] LABS: BUN/Creatinine Ratio 11; Blood Urea Nitrogen 16 mg/dL (9-20); Calcium 8.8 mg/dL (8.4-10.2); Hemolysis Index 74
[2020-03-07] MEDS ORDERED: ASPIRIN EC 325 MG TAB PO SCH (10:00)
[2020-03-07] MEDS ORDERED: METOPROLOL TARTRATE 50 MG TAB PO SCH (10:00)
[2020-03-07] MEDS ORDERED: SPIRONOLACTONE 25 MG TAB PO SCH (10:00)
[2020-03-07] MEDS: APIXABAN 5 MG TAB PO SCH (10:16)
[2020-03-07] MEDS: FAMOTIDINE 20 MG/2 ML INJ IV SCH (10:18)
[2020-03-07] MEDS: LISINOPRIL 20 MG TAB PO SCH (10:18)
--- NOTE | 2020-03-07 12:05 | Discharge Summary ---
Providers - Providers Date of Admission: 03/06/20 10:24 Date of discharge: 03/07/20 Attending physician: LING FLANAGAN 03/06/20 Consult to Cardiac Rehabilitation [CONS] Routine Reason For Exam: Phase I 03/06/20 10:24 Consult to Cardiology [CONS] Routine Consulting Provider: WAGNER MARLOW Reason For Exam: chf, chest pain Primary care physician: ENVIRONMENTAL SAFETY SPECIALIST Hospitalization Reason for admission: Chest pain Condition: Stable Hospital course: Patient is a 44-year-old -Congolese male with known history of hypertension and obesity presenting to the emergency room today complaining of left-sided chest pain which he states is sudden onset. With associated shortness of breath woke him up from sleep today. Patient has had multiple admissions and otherwise normally followed at [facility]. He is supposed to be on a LifeVest and last time he was here stated that he wanted this to be done outpatient. Unfortunately he still does not have the LifeVest. His last known EF was around 15%. He reports compliance with all his medications denies any swelling in his lower extremity. In the ED his blood pressure was noted to be normal vitals at this time. Previous hospitalization indicated elevated liver exams which work-up was unremarkable except for noted possible passive congestion from his underlying heart failure. He is also has had significant problem with uncontrolled hypertension. He denies any nausea vomiting or diarrhea chest pain on the left side is reproducible. He denies any tobacco use. 03/07 patient is alert and oriented and he offers no specific complaints. He denies any chest pain or shortness of breath He is followed at [facility] and apparently he is on LifeVest but he did not bring it to the hospital Troponin x3 in the normal range Discussed with cardiology nurse practitioner Apparently patient was cleared for discharge from their point of view although the consult note is pending at this time Vital sign records show he is bradycardic however he is asymptomatic Again discussed with the cardiology nurse practitioner. She states that the bradycardia was not seen on senior c web developer and she would continue patient's home medications including metoprolol 100 mg twice daily. Patient is medically stable for discharge Atypical chest pain [place] ruled out No further cardiac work-up at this time Cleared for discharge by cardiology Nonischemic cardiomyopathy-compensated On LifeVest Clarified patient home medications He is taking metoprolol XL 50 mg 1-1/2 tablets daily He will resume his home medication instead of 100 mg twice daily Also takes atorvastatin 10 mg Basically patient was told to continue all his home medications History of medical noncompliance Emphasized the importance of compliance with medications Atrial fibrillation without RVR Continue home medications including Eliquis Obstructive sleep apnea Presumed hypothyroidism Patient is not on any medication Follow-up with PCP Disposition: DC-01 TO HOME OR SELFCARE Core Measure Documentation - Palliative Care Palliative Care/ Comfort Measures: Not Applicable - Core Measures Any of the following diagnoses?: heart failure - Heart Failure Discharge Requirements CHELSEA/ARB for LVSD if EF <40%: Yes Beta yajaira at discharge: Yes Exam - Constitutional Vitals: Temp Pulse Resp BP Pulse Ox 97.9 F 75 20 139/85 92 03/07/20 08:12 03/07/20 11:15 03/07/20 11:00 03/07/20 10:18 03/07/20 08:12 General appearance: Present: no acute distress, well-nourished - EENT Eyes: Present: PERRL, EOM intact ENT: hearing intact, clear oral mucosa - Neck Neck: Present: supple, normal ROM - Respiratory Respiratory effort: normal Respiratory: bilateral: CTA - Cardiovascular Rhythm: regular Heart Sounds: Present: S1 & S2 - Extremities Extremities: No edema - Abdominal General gastrointestinal: Present: soft, non-tender. Absent: hepatomegaly, splenomegaly Male genitourinary: Present: deferred - Rectal Rectal Exam: deferred - Integumentary Integumentary: Present: clear - Musculoskeletal Musculoskeletal: strength equal bilaterally - Neurologic Neurologic: no focal deficits Plan Activity: advance as tolerated Weight Bearing Status: Full Weight Bearing Diet: regular, low fat, low cholesterol, low salt Special Instructions: restrict fluid intake to (1200mL/day), record daily weights Follow up with: PRIMARY MD CHYNA [Primary Care Provider] - 3-5 Days WAGNER MARLOW MD [Staff Physician] - 7 Days
--- NOTE | 2020-03-07 12:27 | Consultation ---
History of Present Illness Consult date: 03/07/20 Requesting physician: MIGUEL ANTOINE Consult reason: chest pain, congestive heart failure History of present illness: The patient is a 44YO male with a past medical history of presumed NICMP, HFrEF, LifeVest in place (although pt left LifeVest at home on his bed when the ambulance came to get him yesterday), atrial fibrillation, anticoagulated with Eliquis, HTN, obesity, suspected HUONG, NSVT. He reports that he is regularly followed by [place] [facility]. He presented with c/o intermittent chest pain since yesterday morning. He states that the pain awoke him from sleep. He describes the pain as an intermittent precordial stabbing pain which is aggravated by deep inspiration, coughing and by palpation of the chest wall. He denies any SOB, palpitations, n/v, diaphoresis, dizziness or syncope. He denies any overt signs or symptoms of acutely decompensated HF. On evaluation, he states the pain has resolved. Lexiscan MPI stress test 12/22/2019 - neg for ischemia. tte done 12/2019 showed EF 15-20%, LV mod dilated, mild MR. Past History Past Medical History: atrial fib, heart failure, hyperthyroidism, hypertension, other Past Surgical History: No surgical history Social history: no significant social history. denies: smoking, alcohol abuse, IV drug use Family history: no significant family history Medications and Allergies Allergies Allergy/AdvReac Type Severity Reaction Status Date / Time lisinopril Allergy Swelling Verified 03/06/20 05:58 Home Medications Medication Instructions Recorded Confirmed Last Taken Type ALBUTEROL NEB's 1 unit INHALATION PRN 03/06/20 03/06/20 Unknown History Apixaban [Eliquis starter pack] 5 mg PO QDAY 03/06/20 03/06/20 Unknown History AtorvaSTATin 10 mg PO QDAY 03/06/20 03/06/20 Unknown History Furosemide [Lasix TAB] 20 mg PO QDAY 03/06/20 03/06/20 Unknown History Isosorbide Dinit/Hydralazine 1 unit PO Q8H 03/06/20 03/06/20 Unknown History [Bidil 20 mg-37.5 mg Tablet] Losartan [Cozaar] 25 mg PO QDAY 03/06/20 03/06/20 Unknown History Metoprolol 75 mg PO QDAY 03/06/20 03/06/20 Unknown History Apixaban [Eliquis] 5 mg PO Q12HR tablet 03/07/20 Unknown Rx Aspirin EC [Ecotrin] 325 mg PO QDAY tablet 03/07/20 Unknown Rx AtorvaSTATin [Lipitor] 40 mg PO QHS tablet 03/07/20 Unknown Rx Famotidine [Pepcid] 20 mg PO BID tablet 03/07/20 Unknown Rx Metoprolol [Lopressor TAB] 100 mg PO BID tablet 03/07/20 Unknown Rx Spironolactone [Aldactone] 25 mg PO QDAY tablet 03/07/20 Unknown Rx lisinopriL [Zestril TAB] 20 mg PO QDAY tablet 03/07/20 Unknown Rx Active Meds: Active Medications Acetaminophen (Tylenol) 650 mg PO Q6H PRN PRN Reason: Pain, Mild (1-3) Albuterol (Proventil) 2.5 mg IH Q4H PRN PRN Reason: Shortness Of Breath Apixaban (Eliquis) 5 mg PO Q12HR [facility]; Protocol Last Admin: 03/07/20 10:16 Dose: 5 mg Documented by: Aspirin (Ecotrin) 325 mg PO QDAY [facility] Last Admin: 03/07/20 10:18 Dose: 325 mg Documented by: Atorvastatin Calcium (Lipitor) 40 mg PO QHS [facility] Last Admin: 03/06/20 22:13 Dose: 40 mg Documented by: Famotidine (Pepcid) 20 mg PO BID [facility] Furosemide (Lasix) 40 mg IV BID@0600,1800 [facility] Last Admin: 03/07/20 05:41 Dose: 40 mg Documented by: Isosorbide Dinitrate (Isordil) 20 mg PO Q8HR [facility] Last Admin: 03/07/20 05:42 Dose: 20 mg Documented by: Lisinopril (Zestril) 20 mg PO QDAY [facility] Last Admin: 03/07/20 10:18 Dose: Not Given Documented by: Metoprolol Tartrate (Metoprolol) 100 mg PO BID [facility] Morphine Sulfate (Morphine) 2 mg IV Q4H PRN PRN Reason: Pain, Moderate (4-6) Ondansetron HCl (Zofran) 4 mg IV Q8H PRN PRN Reason: Nausea And Vomiting Sodium Chloride (Sodium Chloride Flush Syringe 10 Ml) 10 ml IV PRN PRN PRN Reason: LINE FLUSH Last Admin: 03/07/20 05:41 Dose: 10 ml Documented by: Spironolactone (Aldactone) 25 mg PO QDAY [facility] Last Admin: 03/07/20 10:16 Dose: 25 mg Documented by: Review of Systems Constitutional: no weight loss, no weight gain, no fever, no chills, no sweats Ears, nose, mouth and throat: no ear pain, no nose pain, no sinus pressure, no sinus pain Cardiovascular: chest pain, no orthopnea, no palpitations, no rapid/irregular heart beat, no edema, no syncope, no lightheadedness, no shortness of breath, no dyspnea on exertion, no leg edema Respiratory: pain on inspiration, no cough, no shortness of breath, no dyspnea on exertion, no congestion, no wheezing Gastrointestinal: no abdominal pain, no nausea, no vomiting, no diarrhea, no constipation, no change in bowel habits Genitourinary Male: no dysuria, no hematuria, no flank pain, no discharge, no urinary frequency, no urinary hesitancy Musculoskeletal: no neck stiffness, no neck pain, no shooting arm pain, no arm numbness/tingling, no low back pain, no shooting leg pain Integumentary: no rash, no pruritis, no redness, no sores, no wounds Neurological: no head injury, no paralysis, no weakness, no parathesias, no numbness, no tingling, no seizures, no syncope Psychiatric: no anxiety Endocrine: no cold intolerance, no heat intolerance Hematologic/Lymphatic: no easy bruising, no easy bleeding Allergic/Immunologic: no urticaria Physical Examination Vital Signs Pulse Resp Pulse Ox 90 25 H 96 03/06/20 05:38 03/06/20 05:38 03/06/20 05:38 General appearance: no acute distress HEENT: Positive: PERRL, Normocephaly, Mucus Membranes Moist Neck: Positive: neck supple, trachea midline Cardiac: Positive: irregularly irregular, S1/S2 Lungs: Positive: Decreased Breath Sounds Neuro: Positive: Grossly Intact Abdomen: Negative: Tender Skin: Negative: Rash Musculoskeletal: No Pain Extremities: Absent: edema Results 03/07/20 05:22 03/07/20 05:22 CBC 03/07/20 Range/Units 05:22 WBC 4.4 L (4.5-11.0) K/mm3 RBC 5.73 H (3.65-5.03) M/mm3 Hgb 16.3 H (11.8-15.2) gm/dl Hct 49.1 H (35.5-45.6) % Plt Count 149 (140-440) K/mm3 Lymph # (Auto) 1.6 (1.2-5.4) K/mm3 Swisher # (Auto) 0.7 (0.0-0.8) K/mm3 Eos # (Auto) 0.0 (0.0-0.4) K/mm3 Baso # (Auto) 0.0 (0.0-0.1) K/mm3 Comprehensive Metabolic Panel 03/06/20 03/07/20 Range/Units 15:22 05:22 Sodium 140 140 (137-145) mmol/L Potassium 4.3 4.0 (3.6-5.0) mmol/L Chloride 105.6 103.5 (98-107) mmol/L Carbon Dioxide 24 31 H D (22-30) mmol/L BUN 15 16 (9-20) mg/dL Creatinine 1.4 H 1.5 H (0.8-1.3) mg/dL Glucose 90 116 H (75-100) mg/dL Calcium 8.6 8.8 (8.4-10.2) mg/dL - Imaging and Cardiology Echo: report reviewed (12/2019 showed EF 15-20%, LV mod dilated, mild MR. ) EKG: report reviewed, image reviewed EKG interpretations - Telemetry EKG Rhythm: Atrial Fibrillation - EKG Supraventricular dysrhythmia: atrial fibrillation Assessment and Plan Pt presents with atypical chest pain which appears to be musculoskeletal in origin. AMI r/o, chest pain currently resolved. Recommend trial of NSAIDS if chest pain reoccurs. Lexiscan MPI stress test done 12/22/2019 was neg for ischemia. tte done 12/2019 showed EF 15-20%, LV mod dilated, mild MR. No plans for additional cardiac w/u at this time. No apparent acutely decompensated HF. Tele reviewed - pt has been in persistent atrial fibrillation with HR 70s since admission, no evidence of bradycardia on telemetry although bradcardia is being documented on vital sign flowsheet. Pt may discharge from cardiology standpoint on home cardiac regimen. Compliance with LifeVest encouraged. Recommend pt follow up with [place] [facility] within 2 weeks. Pt verbalizes understanding. The patient has been seen in conjunction with Dr. Ace who agrees with the assessment and plan of care. - Patient Problems (1) Chest pain Current Visit: Yes Status: Resolved (2) Persistent atrial fibrillation Current Visit: Yes Status: Chronic (3) Non-ischemic cardiomyopathy Current Visit: Yes Status: Chronic (4) Chronic HFrEF (heart failure with reduced ejection fraction) Current Visit: Yes Status: Acute (4) Renal insufficiency Current Visit: Yes Status: Chronic (6) HTN (hypertension) Current Visit: Yes Status: Chronic Qualifiers: Hypertension type: essential hypertension Qualified Code(s): I10 - Essential (primary) hypertension (8) Morbid obesity Current Visit: Yes Status: Chronic (9) HUONG (obstructive sleep apnea) Current Visit: Yes Status: Suspected
[2020-03-07 19:35] VITALS: BP 137/84
[2020-03-07] MEDS ORDERED: FAMOTIDINE 20 MG TAB PO SCH (22:00)
[2020-03-07] MEDS ORDERED: METOPROLOL TARTRATE 100 MG TAB PO SCH (22:00)
== END 2020-03-07 21:00 | disposition home or self-care (01) ==
LOC: ED 05:28 → 4A 10:24
PROVIDERS: ADMIT Internal Medicine; ATTEND Internal Medicine
DX: R07.89 Other chest pain (principal); I13.0 Hypertensive heart and chronic kidney disease with heart failure and stage 1 through stage 4 chronic kidney disease, or unspecified chronic kidney disease; I50.21 Acute systolic (congestive) heart failure; N18.2 Chronic kidney disease, stage 2 (mild); I48.19 Other persistent atrial fibrillation; E66.01 Morbid (severe) obesity due to excess calories; G47.33 Obstructive sleep apnea (adult) (pediatric); I42.8 Other cardiomyopathies; E78.00 Pure hypercholesterolemia, unspecified; Z91.19 Patient's noncompliance with other medical treatment and regimen; Z79.01 Long term (current) use of anticoagulants; Z79.82 Long term (current) use of aspirin; Z79.899 Other long term (current) drug therapy; Z88.8 Allergy status to other drugs, medicaments and biological substances; Z68.38 Body mass index [BMI] 38.0-38.9, adult
CPT/HCPCS: 36415; 71045; 80048; 80076; 83735; 83880; 84484; 85025; 85379; 85610; 85730; 87116; 93005; 96374; 96375; 96376; 99285; A9270; G0378; J1940; 85007

== ENCOUNTER 2020-06-29 00:30 | Emergency (ER) | payer SELFPAY ==
[~2020-06-29 00:30] MED LIST: MORPHINE 4 MG/1 ML INJ IV ONE
[2020-06-29] MEDS ORDERED: MORPHINE 4 MG/1 ML INJ ONE (01:01)
[2020-06-29] MEDS ORDERED: ONDANSETRON 4 MG/2 ML INJ ONE (01:09)
[2020-06-29] MEDS ORDERED: ONDANSETRON 4 MG/2 ML INJ IV ONE (01:15)
--- NOTE | 2020-06-29 04:11 | Emergency Department Report ---
ED Chest Pain HPI - General Time Seen by Provider: 06/29/20 03:54 - History of Present Illness Initial Comments: 44-year-old male, history of hypertension, CHF, A. fib on Eliquis, presents to ED with chest pain. Patient denies history of IN or stents. Patient reports chest pain onset 30 minutes prior to arrival. Patient reports he was sitting in bed watching TV and drinking a glass of water when the pain started. Patient states pain is located in the left chest, sharp in nature, constant, nonradiating. Patient reports some mild associated shortness of breath. He denies any nausea, vomiting, diaphoresis, leg pain, swelling, cough, fever. Patient reports he took 2 nitro prior to calling EMS. Upon EMS arrival he was given sublingual nitro and aspirin. Patient denies any tobacco, alcohol, drug use. 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 Please see additional downtime chart as patient was seen during downtime procedures. MD Complaint: chest pain -: minutes(s) (30) Onset: during rest Pain Location: left chest Pain Radiation: none Severity: moderate Quality: sharp Consistency: constant Improves With: nothing Worsens With: nothing re: dyspnea. denies: nausea, vomting, diaphoresis Other Symptoms: denies: cough, fever, syncope, leg swelling Treatments Prior to Arrival: aspirin, nitroglycerin - Related Data Home Medications Medication Instructions Recorded Confirmed Last Taken ALBUTEROL NEB's 1 unit INHALATION PRN 03/06/20 03/06/20 Unknown Apixaban [Eliquis starter pack] 5 mg PO QDAY 03/06/20 03/06/20 Unknown AtorvaSTATin 10 mg PO QDAY 03/06/20 03/06/20 Unknown Furosemide [Lasix TAB] 20 mg PO QDAY 03/06/20 03/06/20 Unknown Isosorbide Dinit/Hydralazine 1 unit PO Q8H 03/06/20 03/06/20 Unknown [Bidil 20 mg-37.5 mg Tablet] Losartan [Cozaar] 25 mg PO QDAY 03/06/20 03/06/20 Unknown Metoprolol 75 mg PO QDAY 03/06/20 03/06/20 Unknown Previous Rx's Medication Instructions Recorded Last Taken Type Apixaban [Eliquis] 5 mg PO Q12HR tablet 03/07/20 Unknown Rx Aspirin EC [Ecotrin] 325 mg PO QDAY tablet 03/07/20 Unknown Rx AtorvaSTATin [Lipitor] 40 mg PO QHS tablet 03/07/20 Unknown Rx Famotidine [Pepcid] 20 mg PO BID tablet 03/07/20 Unknown Rx Metoprolol [Lopressor TAB] 100 mg PO BID tablet 03/07/20 Unknown Rx Spironolactone [Aldactone] 25 mg PO QDAY tablet 03/07/20 Unknown Rx lisinopriL [Zestril TAB] 20 mg PO QDAY tablet 03/07/20 Unknown Rx Allergies Allergy/AdvReac Type Severity Reaction Status Date / Time lisinopril Allergy Swelling Verified 03/06/20 05:58 Heart Score - HEART Score History: Slightly suspicious EKG: Normal Age: < 45 Risk factors: > 3 risk factors or hx of atherosclerotic disease Troponin: < normal limit HEART Score: 2 ED Review of Systems ROS: Stated complaint: Other details as noted in HPI Comment: All other systems reviewed and negative Constitutional: denies: chills, fever Respiratory: shortness of breath. denies: cough Cardiovascular: chest pain Gastrointestinal: denies: nausea, vomiting Musculoskeletal: other (Denies leg pain and swelling) ED Past Medical Hx - Past Medical History Hx Hypertension: Yes Hx Congestive Heart Failure: Yes Hx Diabetes: No Hx Renal Disease: Yes (Left kidney) Hx Asthma: No Hx COPD: No Hx HIV: No Additional medical history: A-fib. High Cholesterol - Social History Smoking Status: Never Smoker - Medications Home Medications: Home Medications Medication Instructions Recorded Confirmed Last Taken Type ALBUTEROL NEB's 1 unit INHALATION PRN 03/06/20 03/06/20 Unknown History Apixaban [Eliquis starter pack] 5 mg PO QDAY 03/06/20 03/06/20 Unknown History AtorvaSTATin 10 mg PO QDAY 03/06/20 03/06/20 Unknown History Furosemide [Lasix TAB] 20 mg PO QDAY 03/06/20 03/06/20 Unknown History Isosorbide Dinit/Hydralazine 1 unit PO Q8H 03/06/20 03/06/20 Unknown History [Bidil 20 mg-37.5 mg Tablet] Losartan [Cozaar] 25 mg PO QDAY 03/06/20 03/06/20 Unknown History Metoprolol 75 mg PO QDAY 03/06/20 03/06/20 Unknown History Apixaban [Eliquis] 5 mg PO Q12HR tablet 03/07/20 Unknown Rx Aspirin EC [Ecotrin] 325 mg PO QDAY tablet 03/07/20 Unknown Rx AtorvaSTATin [Lipitor] 40 mg PO QHS tablet 03/07/20 Unknown Rx Famotidine [Pepcid] 20 mg PO BID tablet 03/07/20 Unknown Rx Metoprolol [Lopressor TAB] 100 mg PO BID tablet 03/07/20 Unknown Rx Spironolactone [Aldactone] 25 mg PO QDAY tablet 03/07/20 Unknown Rx lisinopriL [Zestril TAB] 20 mg PO QDAY tablet 03/07/20 Unknown Rx ED Physical Exam - General General appearance: alert, in no apparent distress, other (Nontoxic-appearing, comfortable) - Head Head exam: Present: atraumatic, normocephalic - Eye Eye exam: Present: normal appearance, EOMI - ENT ENT exam: Present: mucous membranes moist - Neck Neck exam: Present: normal inspection - Respiratory Respiratory exam: Present: normal lung sounds bilaterally, chest wall tenderness. Absent: respiratory distress - Cardiovascular Cardiovascular Exam: Present: regular rate, normal rhythm - GI/Abdominal GI/Abdominal exam: Present: soft. Absent: distended, tenderness - Extremities Exam Extremities exam: Present: normal inspection - Neurological Exam Neurological exam: Present: alert, oriented X3 - Psychiatric Psychiatric exam: Present: normal affect, normal mood - Skin Skin exam: Present: warm, dry, intact, normal color ED Course Vital Signs 06/29/20 04:53 Temperature 98.2 F Pulse Rate 68 Respiratory 16 Rate Blood Pressure 125/88 [Right] O2 Sat by Pulse 100 Oximetry RANDALL score - Randall Score Age > 65: (0) No Aspirin use within the Past 7 Days: (0) No 3 or more CAD Risk Factors: (0) No 2 or more Angina events in past 24 hrs: (0) No Known CAD with more than 50% Stenosis: (0) No Elevated Cardiac Markers: (0) No ST Deviation Greater than 0.5mm: (0) No RANDALL Score: 0 ED Medical Decision Making - EKG Data -: EKG Interpreted by Fl EKG shows normal: QRS complexes, ST-T waves Rate: tachycardia (Rate 102) - EKG Data Interpretation: no acute changes, other (Atrial fibrillation) - Radiology Data Radiology results: report reviewed, image reviewed - Medical Decision Making 44-year-old male, history of hypertension, nonischemic cardiomyopathy, A. fib on Eliquis, presents to ED with chest pain. Patient reports onset of chest pain 30 minutes prior to arrival at rest. He denies any exertional pain. States pain is sharp and left-sided, nonradiating. Vital signs are stable. Patient is nontoxic-appearing. EKG shows A. fib without any evidence of ST changes. D-dimer was sent and appears to be within normal limits. Chest x-ray shows some cardiomegaly but otherwise normal. Troponin negative x2. Repeat EKG stable and unchanged. Patient has significant chest wall tenderness on exam, which he reports reproduces the pain that he is feeling. Pain possibly due to chest wall pain. Patient reports improvement of his pain at this time. Advised outpatient follow-up with his enterprise sales person. Return precautions given. - Differential Diagnosis Chest wall pain, atypical pain, pneumonia, CHF, ACS, PE Critical care attestation.: If time is entered above; I have spent that time in minutes in the direct care of this critically ill patient, excluding procedure time. ED Disposition Clinical Impression: Chest pain Disposition: DC-01 TO HOME OR SELFCARE Is pt being admited?: No Condition: Stable Instructions: Nonspecific Chest Pain, Adult Referrals: PRIMARY CARE, [Primary Care Provider] - 3-5 Days Time of Disposition: 05:00
[2020-06-29 05:47] VITALS: BP 116/84
--- NOTE | 2020-06-29 14:29 | XRay Report ---
CHEST 1 VIEW INDICATION: chest pain COMPARISON: 03/06/2020 FINDINGS: Support devices: None Heart: Mild cardiomegaly, unchanged Lungs/Pleura: No acute pulmonary or pleural findings. IMPRESSION: 1. Mild cardiomegaly but no acute disease and no interval change. Signer Name: David Dove MD Signed: 06/29/2020 12:57 AM Workstation Name: [id number]
--- NOTE | 2020-07-01 10:33 | Electrocardiograph Report ---
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
--- NOTE | 2020-07-01 10:34 | Electrocardiograph Report ---
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
== END 2020-06-29 05:50 | disposition home or self-care (01) ==
LOC: ED 00:30
DX: R07.9 Chest pain, unspecified (principal); I11.0 Hypertensive heart disease with heart failure; I50.9 Heart failure, unspecified; I48.91 Unspecified atrial fibrillation; E78.00 Pure hypercholesterolemia, unspecified; Z88.8 Allergy status to other drugs, medicaments and biological substances; Z79.899 Other long term (current) drug therapy
CPT/HCPCS: 71045; 93005; 96374; 96375; 99284; J2270; J2405

== ENCOUNTER 2021-04-29 23:45 | Inpatient (IN) | payer MEDICAID ==
[2021-04-30] MEDS ORDERED: ASPIRIN 325 MG TAB PO ONE (00:38)
[2021-04-30] MEDS ORDERED: MORPHINE 4 MG/1 ML INJ IV ONE (00:39)
[2021-04-30] MEDS ORDERED: diphenhydrAMINE 50 MG/ML VIAL ONE (01:19)
[2021-04-30] MEDS: ONDANSETRON 4 MG/2 ML INJ IV ONE ×2 (01:20→01:32)
[2021-04-30 01:32] LABS: Alanine Aminotransferase 87 units/L (7-56); Albumin 3.6 g/dL (3.9-5); BUN/Creatinine Ratio 12; Blood Urea Nitrogen 18 mg/dL (9-20); Calcium 8.9 mg/dL (8.4-10.2); Hemolysis Index 5
--- NOTE | 2021-04-30 01:33 | XRay Report ---
CHEST 2 VIEWS INDICATION / CLINICAL INFORMATION: Chest Pain. COMPARISON: 06/29/20. FINDINGS: SUPPORT DEVICES: There is a new multilead left subclavian ICD with the tips of the pacing leads overl neisha the right ventricular apex and coronary sinus. HEART / MEDIASTINUM: Cardiomegaly is stable. There is mild prominence of the central pulmonary vessel s. The aorta is normal in caliber. LUNGS / PLEURA: Interstitial lung markings are mildly increased, especially in the perihilar regions. No pneumothorax. ADDITIONAL FINDINGS: No significant additional findings. IMPRESSION: Probable mild congestive heart failure/perihilar edema. Signer Name: Robb Chinchilla MD Signed: 04/30/2021 1:29 AM Workstation Name: [id number]
[2021-04-30] MEDS ORDERED: diphenhydrAMINE 50 MG/ML VIAL IV ONE (01:34)
[2021-04-30 01:51] LABS: Basophils % (Auto) 0.7 % (0.0-1.8); Eosinophils % (Auto) 0.9 % (0.0-4.3); Hematocrit 48.6 % (35.5-45.6); Hemoglobin 15.8 gm/dl (11.8-15.2); Lymphocytes # (Auto) 1.4 K/mm3 (1.2-5.4); Lymphocytes % (Auto) 25.1 % (13.4-35.0); Mean Corpuscular HGB Conc 33 % (32-34); Mean Corpuscular Volume 85 fl (84-94); Monocytes # (Auto) 0.6 K/mm3 (0.0-0.8); Monocytes % (Auto) 10.8 % (0.0-7.3); Platelet Count 199 K/mm3 (140-440); Red Blood Count 5.72 M/mm3 (3.65-5.03)
[2021-04-30 01:57] LABS: INR 1.11 (0.87-1.13)
[2021-04-30] MEDS ORDERED: FUROSEMIDE 40 MG/4 ML INJ IV ONE (02:36)
--- NOTE | 2021-04-30 02:46 | Emergency Department Report ---
ED Chest Pain HPI - General Chief Complaint: Chest Pain Stated Complaint: CHEST PAIN PUI?: No Time Seen by Provider: 04/30/21 00:38 Source: patient, EMS Mode of arrival: Stretcher Limitations: No Limitations - History of Present Illness Initial Comments: Patient presents with chest painX 3 DAYS Patient received 0.4 of Nitro and 325mg of Aspirin by EMS , pt has history of CHF , non ischemic cardiomypoathy , pacemaker/defibrillator , meds has been modified by his PCP recently , he was taken off lasix and lisniopril and given losartan . pain is diffuse , no sepcific radiation, pressure on and off for 3 days , no ppt factors no relieving factors , associated with SOB , denies fever or cough MD Complaint: chest pain -: Gradual, days(s) Onset: during rest Pain Location: other (diifuse ) Pain Radiation: none Severity scale (0 -10): 6 Quality: pressure, squeezing Consistency: intermittent Improves With: nitroglycerin, rest Worsens With: exertion Treatments Prior to Arrival: aspirin, nitroglycerin - Related Data Home Medications Medication Instructions Recorded Confirmed Last Taken ALBUTEROL NEB's 1 unit INHALATION PRN 03/06/20 03/06/20 Unknown Apixaban [Eliquis starter pack] 5 mg PO QDAY 03/06/20 03/06/20 Unknown AtorvaSTATin 10 mg PO QDAY 03/06/20 03/06/20 Unknown Furosemide [Lasix TAB] 20 mg PO QDAY 03/06/20 03/06/20 Unknown Isosorbide Dinit/Hydralazine 1 unit PO Q8H 03/06/20 03/06/20 Unknown [Bidil 20 mg-37.5 mg Tablet] Losartan [Cozaar] 25 mg PO QDAY 03/06/20 03/06/20 Unknown Metoprolol 75 mg PO QDAY 03/06/20 03/06/20 Unknown Previous Rx's Medication Instructions Recorded Last Taken Type Apixaban [Eliquis] 5 mg PO Q12HR tablet 03/07/20 Unknown Rx Aspirin EC [Ecotrin] 325 mg PO QDAY tablet 03/07/20 Unknown Rx AtorvaSTATin [Lipitor] 40 mg PO QHS tablet 03/07/20 Unknown Rx Famotidine [Pepcid] 20 mg PO BID tablet 03/07/20 Unknown Rx Metoprolol [Lopressor TAB] 100 mg PO BID tablet 03/07/20 Unknown Rx Spironolactone [Aldactone] 25 mg PO QDAY tablet 03/07/20 Unknown Rx lisinopriL [Zestril TAB] 20 mg PO QDAY tablet 03/07/20 Unknown Rx Allergies Allergy/AdvReac Type Severity Reaction Status Date / Time lisinopril Allergy Swelling Verified 04/30/21 00:03 Heart Score - HEART Score History: Moderately suspicious EKG: Non-specific Age: < 45 Risk factors: > 3 risk factors or hx of atherosclerotic disease Troponin: < normal limit HEART Score: 4 - EKG Read Time Time EKG Completed: 00:24 EKG Read Time: 00:25 - Critical Actions Critical Actions: 4-6 pts:12-16.6% risk of adverse cardiac event. Should be admitted ED Review of Systems ROS: Stated complaint: CHEST PAIN Other details as noted in HPI Constitutional: denies: chills, fever Eyes: denies: eye pain, eye discharge, vision change ENT: denies: ear pain, throat pain Respiratory: denies: cough, shortness of breath, wheezing Cardiovascular: denies: chest pain, palpitations Endocrine: no symptoms reported Gastrointestinal: denies: abdominal pain, nausea, diarrhea Genitourinary: denies: urgency, dysuria Musculoskeletal: denies: back pain, joint swelling, arthralgia Skin: denies: rash, lesions Neurological: denies: headache, weakness, paresthesias Psychiatric: denies: anxiety, depression Hematological/Lymphatic: denies: easy bleeding, easy bruising ED Past Medical Hx - Past Medical History Hx Hypertension: Yes Hx Congestive Heart Failure: Yes Hx Diabetes: No Hx Renal Disease: Yes (Left kidney) Hx Asthma: No Hx COPD: No Hx HIV: No Additional medical history: A-fib. High Cholesterol - Social History Smoking Status: Never Smoker - Medications Home Medications: Home Medications Medication Instructions Recorded Confirmed Last Taken Type ALBUTEROL NEB's 1 unit INHALATION PRN 03/06/20 03/06/20 Unknown History Apixaban [Eliquis starter pack] 5 mg PO QDAY 03/06/20 03/06/20 Unknown History AtorvaSTATin 10 mg PO QDAY 03/06/20 03/06/20 Unknown History Furosemide [Lasix TAB] 20 mg PO QDAY 03/06/20 03/06/20 Unknown History Isosorbide Dinit/Hydralazine 1 unit PO Q8H 03/06/20 03/06/20 Unknown History [Bidil 20 mg-37.5 mg Tablet] Losartan [Cozaar] 25 mg PO QDAY 03/06/20 03/06/20 Unknown History Metoprolol 75 mg PO QDAY 03/06/20 03/06/20 Unknown History Apixaban [Eliquis] 5 mg PO Q12HR tablet 03/07/20 Unknown Rx Aspirin EC [Ecotrin] 325 mg PO QDAY tablet 03/07/20 Unknown Rx AtorvaSTATin [Lipitor] 40 mg PO QHS tablet 03/07/20 Unknown Rx Famotidine [Pepcid] 20 mg PO BID tablet 03/07/20 Unknown Rx Metoprolol [Lopressor TAB] 100 mg PO BID tablet 03/07/20 Unknown Rx Spironolactone [Aldactone] 25 mg PO QDAY tablet 03/07/20 Unknown Rx lisinopriL [Zestril TAB] 20 mg PO QDAY tablet 03/07/20 Unknown Rx ED Physical Exam - General Limitations: No Limitations General appearance: alert, in no apparent distress - Head Head exam: Present: atraumatic, normocephalic - Eye Eye exam: Present: normal appearance - ENT ENT exam: Present: mucous membranes moist - Neck Neck exam: Present: normal inspection - Respiratory Respiratory exam: Present: rales. Absent: respiratory distress - Cardiovascular Cardiovascular Exam: Present: normal rhythm, tachycardia. Absent: systolic murmur, diastolic murmur, rubs, gallop - GI/Abdominal GI/Abdominal exam: Present: soft, normal bowel sounds - Rectal Rectal exam: Present: deferred - Extremities Exam Extremities exam: Present: normal inspection - Back Exam Back exam: Present: normal inspection - Neurological Exam Neurological exam: Present: alert, oriented X3 - Psychiatric Psychiatric exam: Present: normal affect, normal mood - Skin Skin exam: Present: warm, dry, intact, normal color. Absent: rash ED Course Vital Signs 04/30/21 04/30/21 04/30/21 00:04 01:14 01:16 Temperature 99.4 F Pulse Rate 104 H 98 H 97 H Respiratory 20 17 22 Rate Blood Pressure Blood Pressure 136/99 [Left] O2 Sat by Pulse 95 99 97 Oximetry 04/30/21 04/30/21 04/30/21 01:30 01:46 02:00 Temperature Pulse Rate 103 H 107 H 93 H Respiratory 38 H 23 35 H Rate Blood Pressure 141/112 116/70 116/70 Blood Pressure [Left] O2 Sat by Pulse 95 98 95 Oximetry 04/30/21 04/30/21 02:16 02:30 Temperature Pulse Rate 98 H 110 H Respiratory 27 H 32 H Rate Blood Pressure 133/90 134/98 Blood Pressure [Left] O2 Sat by Pulse 92 88 Oximetry - Reevaluation(s) Reevaluation #1: 04/30/21 02:41 work up showed elevated BNP lasix given , pain better , developed allergic reaction to morphine bandryl given , will admit for obs RANDALL score - Randall Score Age > 65: (0) No Aspirin use within the Past 7 Days: (1) Yes 3 or more CAD Risk Factors: (1) Yes 2 or more Angina events in past 24 hrs: (0) No Known CAD with more than 50% Stenosis: (0) No Elevated Cardiac Markers: (0) No ST Deviation Greater than 0.5mm: (0) No RANDALL Score: 2 ED Medical Decision Making - Lab Data Result diagrams: 04/30/21 01:05 04/30/21 01:05 Critical care attestation.: If time is entered above; I have spent that time in minutes in the direct care of this critically ill patient, excluding procedure time. ED Disposition Clinical Impression: Chest pain, Cardiomyopathy, CHF exacerbation Disposition: 09 ADMITTED INPATIENT Is pt being admited?: Yes Does the pt Need Aspirin: No Condition: Stable Instructions: Nonspecific Chest Pain, Adult
[2021-04-30] MEDS ORDERED: MORPHINE 4 MG/1 ML INJ IV PRN (04:03)
[2021-04-30] MEDS ORDERED: traMADol 50 MG TAB PO PRN (04:03)
[2021-04-30] MEDS ORDERED: ACETAMINOPHEN 325 MG TAB PO PRN (04:03)
[2021-04-30] MEDS ORDERED: NITROGLYCERIN 0.4 MG TAB SUBL SL PRN (04:03)
--- NOTE | 2021-04-30 04:16 | History and Physical Report ---
History of Present Illness Date of examination: 04/30/21 Date of admission: 05/01/21 Chief complaint: Chest pain History of present illness: 45 years old -[place] male with past medical history of A. fib ,heart failure , hypothyroidism, CHF, nonischemic cardiomyopathy, pacemaker defibrillator hypertension obesity was brought to the hospital because of chest pain for last 3 DAYS . Chest pain is diffuse 6/10 pressure squeezing type intermittent in the left chest worsened with exertion improved with nitroglycerin and rest .associated with SOB , denies fever or cough . Patient received 0.4 of Nitro and 325mg of Aspirin by EMS . patient meds has been modif ied by his PCP recently , he was taken off lasix and lisniopril and given losartan . associated with SOB , denies fever or cough In the emergency room initial cardiac enzyme is negative troponin is 0.010 patient proBNP 3279. So going to admit the patient we will put the patient chest pain pathway will consult cardiology for evaluation Past History Past Medical History: atrial fib, heart failure, hypertension, hyperlipidemia, hypothyroidism, renal failure, other (Obesity) Medications and Allergies Allergies Allergy/AdvReac Type Severity Reaction Status Date / Time lisinopril Allergy Swelling Verified 04/30/21 00:03 Home Medications Medication Instructions Recorded Confirmed Last Taken Type ALBUTEROL NEB's 1 unit INHALATION PRN 03/06/20 03/06/20 Unknown History Apixaban [Eliquis starter pack] 5 mg PO QDAY 03/06/20 03/06/20 Unknown History AtorvaSTATin 10 mg PO QDAY 03/06/20 03/06/20 Unknown History Furosemide [Lasix TAB] 20 mg PO QDAY 03/06/20 03/06/20 Unknown History Isosorbide Dinit/Hydralazine 1 unit PO Q8H 03/06/20 03/06/20 Unknown History [Bidil 20 mg-37.5 mg Tablet] Losartan [Cozaar] 25 mg PO QDAY 03/06/20 03/06/20 Unknown History Metoprolol 75 mg PO QDAY 03/06/20 03/06/20 Unknown History Apixaban [Eliquis] 5 mg PO Q12HR tablet 03/07/20 Unknown Rx Aspirin EC [Ecotrin] 325 mg PO QDAY tablet 03/07/20 Unknown Rx AtorvaSTATin [Lipitor] 40 mg PO QHS tablet 03/07/20 Unknown Rx Famotidine [Pepcid] 20 mg PO BID tablet 03/07/20 Unknown Rx Metoprolol [Lopressor TAB] 100 mg PO BID tablet 03/07/20 Unknown Rx Spironolactone [Aldactone] 25 mg PO QDAY tablet 03/07/20 Unknown Rx lisinopriL [Zestril TAB] 20 mg PO QDAY tablet 03/07/20 Unknown Rx Review of Systems All systems: negative Cardiovascular: chest pain, rapid/irregular heart beat, shortness of breath, dyspnea on exertion Respiratory: cough Exam - Constitutional Vitals: Temp Pulse Resp BP Pulse Ox 99.4 F 110 H 32 H 134/98 88 04/30/21 00:04 04/30/21 02:30 04/30/21 02:30 04/30/21 02:30 04/30/21 02:30 General appearance: Present: no acute distress, well-nourished - EENT Eyes: Present: PERRL ENT: hearing intact, clear oral mucosa - Neck Neck: Present: supple, normal ROM - Respiratory Respiratory effort: normal Respiratory: bilateral: diminished - Cardiovascular Rhythm: irregularly irregular Heart Sounds: Present: S1 & S2. Absent: rub, click - Extremities Extremities: pulses symmetrical, No edema Peripheral Pulses: within normal limits - Abdominal General gastrointestinal: Present: soft, non-tender, non-distended, normal bowel sounds Male genitourinary: Present: normal - Integumentary Integumentary: Present: clear, warm, dry - Musculoskeletal Musculoskeletal: gait normal, strength equal bilaterally - Psychiatric Psychiatric: appropriate mood/affect, intact judgment & insight - Neurologic Neurologic: CNII-XII intact, moves all extremities HEART Score - HEART Score EKG: Non-specific Age: < 45 Risk factors: > 3 risk factors or hx of atherosclerotic disease Troponin: Troponin T < 0.010 ng/mL (0.00-0.029) 04/30/21 01:05 Troponin: < normal limit - Critical Actions Critical Actions: 4-6 pts:12-16.6% risk of adverse cardiac event. Should be admitted Results - Labs CBC & Chem 7: 04/30/21 01:05 04/30/21 01:05 Labs: Laboratory Last Values WBC 5.5 K/mm3 (4.5-11.0) 04/30/21 01:05 RBC 5.72 M/mm3 (3.65-5.03) H 04/30/21 01:05 Hgb 15.8 gm/dl (11.8-15.2) H 04/30/21 01:05 Hct 48.6 % (35.5-45.6) H 04/30/21 01:05 MCV 85 fl (84-94) 04/30/21 01:05 MCH 28 pg (28-32) 04/30/21 01:05 MCHC 33 % (32-34) 04/30/21 01:05 RDW 14.0 % (13.2-15.2) 04/30/21 01:05 Plt Count 199 K/mm3 (140-440) 04/30/21 01:05 Lymph % (Auto) 25.1 % (13.4-35.0) 04/30/21 01:05 [place] % (Auto) 10.8 % (0.0-7.3) H 04/30/21 01:05 Eos % (Auto) 0.9 % (0.0-4.3) 04/30/21 01:05 Baso % (Auto) 0.7 % (0.0-1.8) 04/30/21 01:05 Lymph # (Auto) 1.4 K/mm3 (1.2-5.4) 04/30/21 01:05 [place] # (Auto) 0.6 K/mm3 (0.0-0.8) 04/30/21 01:05 Eos # (Auto) 0.0 K/mm3 (0.0-0.4) 04/30/21 01:05 Baso # (Auto) 0.0 K/mm3 (0.0-0.1) 04/30/21 01:05 Seg Neutrophils % 62.5 % (40.0-70.0) 04/30/21 01:05 Seg Neutrophils # 3.4 K/mm3 (1.8-7.7) 04/30/21 01:05 PT 15.5 Sec. (12.2-14.9) H 04/30/21 01:05 INR 1.11 (0.87-1.13) 04/30/21 01:05 Sodium 143 mmol/L (137-145) 04/30/21 01:05 Potassium 3.8 mmol/L (3.6-5.0) 04/30/21 01:05 Chloride 109.1 mmol/L (98-107) H 04/30/21 01:05 Carbon Dioxide 22 mmol/L (22-30) 04/30/21 01:05 Anion Gap 16 mmol/L 04/30/21 01:05 BUN 18 mg/dL (9-20) 04/30/21 01:05 Creatinine 1.5 mg/dL (0.8-1.3) H 04/30/21 01:05 Estimated GFR > 60 ml/min 04/30/21 01:05 BUN/Creatinine Ratio 12 % 04/30/21 01:05 Glucose 98 mg/dL (75-100) 04/30/21 01:05 Calcium 8.9 mg/dL (8.4-10.2) 04/30/21 01:05 Total Bilirubin 1.70 mg/dL (0.1-1.2) H 04/30/21 01:05 AST 52 units/L (5-40) H 04/30/21 01:05 ALT 87 units/L (7-56) H 04/30/21 01:05 Alkaline Phosphatase 92 units/L (35-129) 04/30/21 01:05 Troponin T < 0.010 ng/mL (0.00-0.029) 04/30/21 01:05 NT-Pro-B Natriuret Pep 3279 pg/mL (0-450) H 04/30/21 01:10 Total Protein 6.5 g/dL (6.3-8.2) 04/30/21 01:05 Albumin 3.6 g/dL (3.9-5) L 04/30/21 01:05 Albumin/Globulin Ratio 1.2 % 04/30/21 01:05 Lipase 21 units/L (13-60) 04/30/21 01:05 - Imaging and Cardiology Chest x-ray: report reviewed Assessment and Plan VTE prophylaxis?: Chemical Plan of care discussed with patient/family: Yes - Patient Problems (1) Acute coronary syndrome Current Visit: Yes Status: Acute Plan to address problem: Admit the patient to the medical telemetry. Aspirin 325 mg p.o. daily. Lipitor 40 mg p.o. daily. Nitroglycerin as needed. Eliquis 5 mg p.o. twice daily. We do the serial cardiac enzyme. We also do a echocardiogram and consult cardiology for evaluation (2) Cardiomyopathy Current Visit: Yes Status: Acute Plan to address problem: Aspirin 325 mg p.o. daily. Lipitor 40 mg p.o. daily. Nitroglycerin as needed. El iquis 5 mg p.o. twice daily. We do the serial cardiac enzyme. We also do a echocardiogram and consult cardiology for evaluation (3) Acute HFrEF (heart failure with reduced ejection fraction) Current Visit: No Status: Acute Plan to address problem: Fluid restriction. Maintain input output. Lasix 40 mg IV daily. Echocardiogram. Cardiology evaluation (4) Chronic renal insufficiency, stage II (mild) Current Visit: No Status: Acute Plan to address problem: Avoid nephrotoxic drug. Renally dose medication. Recheck BMP in the morning (5) HTN (hypertension) Current Visit: No Status: Chronic Qualifiers: Hypertension type: essential hypertension Qualified Code(s): I10 - Essential (primary) hypertension Plan to address problem: Isosorbide dinitrate/hydralazine 20/37.5 mg tablet p.o. every 8 hours. Metoprolol 75 mg p.o. daily losartan 25 mg p.o. daily and Lasix 40 mg p.o. daily (6) Hypothyroidism Current Visit: No Status: Suspected Plan to address problem: Stable we will continue the home medication (7) DVT prophylaxis Current Visit: No Status: Acute Plan to address problem: Eliquis 5 mg p.o. twice daily for DVT prophylaxis. Pepcid 20 mg p.o. twice daily for GI prophylaxis. Patient is a full code
[2021-04-30] MEDS ORDERED: HEPARIN 5,000 UNIT/1 ML VIAL SUB-Q SCH (06:00)
[2021-04-30] MEDS: ISOSORB DINIT/HYDRALAZINE 20-37.5MG TAB PO SCH ×3 (07:26→21:04)
--- NOTE | 2021-04-30 09:43 | Consultation ---
History of Present Illness Consult date: 04/30/21 Requesting physician: SHEYLA SALEH Consult reason: chest pain, shortness of breath History of present illness: 45-year-old male with multiple medical problems including nonischemic cardiomyopathy EF 20%, chronic HFrEF, paroxysmal atrial fibrillation, single- chamber cardiac defibrillator, hypertension, obesity, HUONG, and hypothyroidism presents to [facility] emergency department complaining of a sharp chest pain. The patient reports that he was sitting at home and developed chest pain that would not subside. He also is complaining of shortness of breath and a sensation as if he cannot catch his breath. In the emergency department chest x-ray revealed increased interstitial markings. BUN of 18 creatinine of 1.5. proBNP 3279. Troponin was negative. Of note the patient states that his primary care physician had changed some of his medications secondary to hypotension at home. He states that his systolics occasionally were in the 60s. A twelve-lead EKG reveals atrial fibrillation with intermittent paced beats. Patient sees cardiology at [place]. Past History Past Medical History: atrial fib, heart failure, hypertension, hyperlipidemia, hypothyroidism, renal failure, other (Obesity) Past Surgical History: No surgical history Social history: denies: smoking, IV drug use Medications and Allergies Allergies Allergy/AdvReac Type Severity Reaction Status Date / Time lisinopril Allergy Swelling Verified 04/30/21 07:44 losartan Allergy Swelling Verified 04/30/21 07:44 Home Medications Medication Instructions Recorded Confirmed Last Taken Type ALBUTEROL NEB's 1 unit INHALATION PRN 03/06/20 03/06/20 Unknown History Apixaban [Eliquis starter pack] 5 mg PO QDAY 03/06/20 03/06/20 Unknown History AtorvaSTATin 10 mg PO QDAY 03/06/20 03/06/20 Unknown History Furosemide [Lasix TAB] 20 mg PO QDAY 03/06/20 03/06/20 Unknown History Isosorbide Dinit/Hydralazine 1 unit PO Q8H 03/06/20 03/06/20 Unknown History [Bidil 20 mg-37.5 mg Tablet] Losartan [Cozaar] 25 mg PO QDAY 03/06/20 03/06/20 Unknown History Metoprolol 75 mg PO QDAY 03/06/20 03/06/20 Unknown History Apixaban [Eliquis] 5 mg PO Q12HR tablet 03/07/20 Unknown Rx Aspirin EC [Ecotrin] 325 mg PO QDAY tablet 03/07/20 Unknown Rx AtorvaSTATin [Lipitor] 40 mg PO QHS tablet 03/07/20 Unknown Rx Famotidine [Pepcid] 20 mg PO BID tablet 03/07/20 Unknown Rx Metoprolol [Lopressor TAB] 100 mg PO BID tablet 03/07/20 Unknown Rx Spironolactone [Aldactone] 25 mg PO QDAY tablet 03/07/20 Unknown Rx lisinopriL [Zestril TAB] 20 mg PO QDAY tablet 03/07/20 Unknown Rx Active Meds: Active Medications Acetaminophen (Acetaminophen 325 Mg Tab) 650 mg PO Q6H PRN PRN Reason: Pain, Mild (1-3) Apixaban (Apixaban 5 Mg Tab) 5 mg PO Q12HR [facility] Aspirin (Aspirin Ec 325 Mg Tab) 325 mg PO QDAY [facility] Atorvastatin Calcium (Atorvastatin 40 Mg Tab) 40 mg PO QHS [facility] Furosemide (Furosemide 20 Mg/2 Ml Inj) 20 mg IV QDAY [facility] Isosorbide Dinitrate/Hydralazine (Isosorb Dinit/Hydralazine 20-37.5mg Tab) 1 each PO Q8HR [facility] Last Admin: 04/30/21 07:26 Dose: Not Given Losartan Potassium (Losartan 25 Mg Tab) 25 mg PO QDAY [facility] Metoprolol Tartrate (Metoprolol Tartrate 50 Mg Tab) 75 mg PO QDAY [facility] Morphine Sulfate (Morphine 4 Mg/1 Ml Inj) 2 mg IV Q5MIN PRN PRN Reason: Chest Pain unrelieved by NTG Nitroglycerin (Nitroglycerin 0.4 Mg Tab Subl) 0.4 mg SL Q5M PRN PRN Reason: Chest Pain Sodium Chloride (Sodium Chloride 0.9% 10 Ml Flush Syringe) 10 ml IV PRN PRN PRN Reason: LINE FLUSH Spironolactone (Spironolactone 25 Mg Tab) 25 mg PO QDAY [facility] Tramadol HCl (Tramadol 50 Mg Tab) 50 mg PO Q6H PRN PRN Reason: Pain, Moderate (4-6) Review of Systems Constitutional: no fever, no chills, no sweats Ears, nose, mouth and throat: deferred Cardiovascular: orthopnea, shortness of breath, no chest pain, no palpitations, no edema, no syncope Respiratory: shortness of breath, dyspnea on exertion, no cough Gastrointestinal: no nausea, no vomiting, no diarrhea Musculoskeletal: no neck stiffness, no neck pain Integumentary: no rash, no pruritis Neurological: no paralysis, no weakness Psychiatric: no anxiety, no memory loss Endocrine: no cold intolerance, no heat intolerance Physical Examination Vital Signs Temp Pulse Resp BP Pulse Ox 99.4 F 104 H 20 136/99 95 04/30/21 00:04 04/30/21 00:04 04/30/21 00:04 04/30/21 00:04 04/30/21 00:04 General appearance: obese HEENT: Positive: PERRL Neck: Positive: neck supple Cardiac: Positive: Irregularly Regular Lungs: Positive: Decreased Breath Sounds Neuro: Positive: Grossly Intact Abdomen: Positive: Soft, Active Bowel Sounds Male genitourinary: Positive: deferred Skin: Negative: Rash Extremities: Present: warm. Absent: edema Results 04/30/21 01:05 04/30/21 01:05 Cardiac Enzymes 04/30/21 Range/Units 01:05 AST 52 H (5-40) units/L Coagulation 04/30/21 Range/Units 01:05 PT 15.5 H (12.2-14.9) Sec. INR 1.11 (0.87-1.13) CBC 04/30/21 Range/Units 01:05 WBC 5.5 (4.5-11.0) K/mm3 RBC 5.72 H (3.65-5.03) M/mm3 Hgb 15.8 H (11.8-15.2) gm/dl Hct 48.6 H (35.5-45.6) % Plt Count 199 (140-440) K/mm3 Lymph # (Auto) 1.4 (1.2-5.4) K/mm3 [place] # (Auto) 0.6 (0.0-0.8) K/mm3 Eos # (Auto) 0.0 (0.0-0.4) K/mm3 Baso # (Auto) 0.0 (0.0-0.1) K/mm3 Comprehensive Metabolic Panel 04/30/21 Range/Units 01:05 Sodium 143 (137-145) mmol/L Potassium 3.8 (3.6-5.0) mmol/L Chloride 109.1 H (98-107) mmol/L Carbon Dioxide 22 (22-30) mmol/L BUN 18 (9-20) mg/dL Creatinine 1.5 H (0.8-1.3) mg/dL Glucose 98 (75-100) mg/dL Calcium 8.9 (8.4-10.2) mg/dL AST 52 H (5-40) units/L ALT 87 H (7-56) units/L Alkaline Phosphatase 92 (35-129) units/L Total Protein 6.5 (6.3-8.2) g/dL Albumin 3.6 L (3.9-5) g/dL - Imaging and Cardiology Echo: report reviewed EKG interpretations - Telemetry EKG Rhythm: Atrial Fibrillation Assessment and Plan Myocardial perfusion scan 12/22/19: No evidence of stress-induced ischemia or prior myocardial infarction ECHO 12/20/2019: EF 15 to 20%, mild mitral regurgitation 45-year-old male Atypical chest pain Acute on chronic HFrEF 20% Atrial fibrillation Nonischemic cardiomyopathy Single-chamber ICD Hypertension Obesity HUONG/no CPAP Hypothyroidism Agree with gentle diuresis Strict I's and O's Monitor potassium, magnesium, and creatinine Continue aspirin/Eliquis Continue statin Continue metoprolol 75/Aldactone 25/Cozaar 25/Bidil Monitor blood pressure
[2021-04-30] MEDS ORDERED: LISINOPRIL 20 MG TAB PO SCH (10:00)
[2021-04-30] MEDS ORDERED: LOSARTAN 25 MG TAB PO SCH (10:00)
[2021-04-30] MEDS ORDERED: METOPROLOL TARTRATE 100 MG TAB PO SCH (10:00)
[2021-04-30] MEDS ORDERED: FUROSEMIDE 20 MG TAB PO SCH (10:00)
[2021-04-30] MEDS ORDERED: FUROSEMIDE 20 MG/2 ML INJ IV SCH (10:00)
[2021-04-30] MEDS ORDERED: NON-FORMULARY EACH (Apixaban 5 MG Tablet) PO SCH (10:00)
--- NOTE | 2021-04-30 12:33 | Event Note ---
Date: 04/30/21 The patient was seen today and was found to be hemodynamically stable. The patient was evaluated by Cardiology, who agreed with the current plan.
[2021-04-30] MEDS: SPIRONOLACTONE 25 MG TAB PO SCH (14:58)
[2021-04-30] MEDS: APIXABAN 5 MG TAB PO SCH ×2 (14:58→21:04)
[2021-04-30] MEDS: METOPROLOL TARTRATE 50 MG TAB PO SCH (14:59)
[2021-04-30] MEDS: ASPIRIN EC 325 MG TAB PO SCH (15:04)
[2021-05-01 05:21] LABS: Calcium 8.3 mg/dL (8.4-10.2)
[2021-05-01 05:24] LABS: Eosinophils # (Auto) 0.1 K/mm3 (0.0-0.4); Eosinophils % (Auto) 2.2 % (0.0-4.3); Hemoglobin 14.8 gm/dl (11.8-15.2); Lymphocytes # (Auto) 1.1 K/mm3 (1.2-5.4); Lymphocytes % (Auto) 25.3 % (13.4-35.0); Mean Corpuscular HGB Conc 32 % (32-34); Mean Corpuscular Volume 87 fl (84-94); Monocytes # (Auto) 0.4 K/mm3 (0.0-0.8); Monocytes % (Auto) 9.6 % (0.0-7.3); Platelet Count 200 K/mm3 (140-440); Red Blood Count 5.28 M/mm3 (3.65-5.03); Red Cell Distribution Width 14.3 % (13.2-15.2)
[2021-05-01] MEDS: ISOSORB DINIT/HYDRALAZINE 20-37.5MG TAB PO SCH (06:24)
[2021-05-01] MEDS ORDERED: ASPIRIN EC 325 MG TAB PO SCH (10:00)
[2021-05-01] MEDS ORDERED: REGADENOSON 0.4 MG/5 ML INJ IV ONE (11:00)
--- NOTE | 2021-05-01 11:22 | Progress Note ---
Assessment and Plan 45-year-old male with multiple medical problems including nonischemic cardiomyopathy EF 20%, chronic HFrEF, paroxysmal atrial fibrillation, single- chamber cardiac defibrillator, hypertension, obesity, HUONG, and hypothyroidism presented with complaint of a sharp chest pain. Atypical chest pain Acute on chronic HFrEF 20% Atrial fibrillation Nonischemic cardiomyopathy Single-chamber ICD Hypertension Obesity HUONG/no CPAP Hypothyroidism Echo 04/30/2021-EF 15 to 20% mild LVH. Right ventricle is dilated. Right ventricle is hypokinetic. Right and left atrium dilated. Trace tricuspid regurgitation Lexiscan MPI stress test 05/01/2021- negative for signs of ischemia Myocardial perfusion scan 12/22/19: No evidence of stress-induced ischemia or prior myocardial infarction ECHO 12/20/2019: EF 15 to 20%, mild mitral regurgitation Plan: Continue aspirin/Eliquis, statin metoprolol 75/Aldactone 25/Cozaar 25/Bidil Patient currently chest pain free Echo and stress results noted above Cardiac status stable for discharge Patient should follow-up with their [facility] privacy compliance manager in 1 to 2 weeks after discharge Patient seen in conjunction with Dr. Ace who agrees with this plan - Patient Problems (1) CHF exacerbation Current Visit: Yes Status: Acute (2) Cardiomyopathy Current Visit: Yes Status: Acute (3) Chest pain Current Visit: Yes Status: Acute (4) ANNALISE (acute kidney injury) Current Visit: No Status: Acute (5) Acute HFrEF (heart failure with reduced ejection fraction) Current Visit: No Status: Acute (6) Atrial fibrillation with RVR Current Visit: No Status: Acute (7) Chronic renal insufficiency, stage II (mild) Current Visit: No Status: Acute (8) Non-ischemic cardiomyopathy Current Visit: No Status: Acute (9) HTN (hypertension) Current Visit: No Status: Chronic Qualifiers: Hypertension type: essential hypertension Qualified Code(s): I10 - Essential (primary) hypertension (10) Morbid obesity Current Visit: No Status: Chronic (11) Hypothyroidism Current Visit: No Status: Suspected (12) HUONG (obstructive sleep apnea) Current Visit: No Status: Suspected Subjective Date of service: 05/01/21 Principal diagnosis: chest pain Interval history: Patient for stress test this a.m. Paced 64 monitor with no events Objective Vital Signs Temp Pulse Resp BP BP Pulse Ox 05/01/21 10:24 159/98 05/01/21 10:23 150/93 05/01/21 10:21 156/101 05/01/21 10:20 153/91 05/01/21 10:19 157/105 05/01/21 09:58 147/107 05/01/21 05:00 18 94 05/01/21 04:30 97.1 F L 87 16 133/102 94 04/30/21 23:56 96 04/30/21 23:32 97.3 F L 74 16 114/74 81 L 04/30/21 21:04 64 112/73 04/30/21 21:02 64 97 04/30/21 21:01 97.7 F 64 18 112/79 97 04/30/21 17:08 20 98 04/30/21 15:11 98.2 F 85 20 150/111 100 04/30/21 15:01 89 04/30/21 15:00 89 04/30/21 14:59 89 04/30/21 14:58 89 04/30/21 13:26 91 H 128/72 04/30/21 13:08 77 04/30/21 12:03 96.0 F L 98 H 20 137/102 93 - Physical Examination General: No Apparent Distress HEENT: Positive: PERRL Neck: Positive: neck supple Cardiac: Positive: Reg Rate and Rhythm Lungs: Positive: Normal Breath Sounds Neuro: Positive: Grossly Intact Abdomen: Positive: Soft, Active Bowel Sounds Skin: Negative: Rash Extremities: Present: warm. Absent: edema - Labs and Meds CBC 05/01/21 Range/Units 04:53 WBC 4.3 L (4.5-11.0) K/mm3 RBC 5.28 H (3.65-5.03) M/mm3 Hgb 14.8 (11.8-15.2) gm/dl Hct 46.0 H (35.5-45.6) % Plt Count 200 (140-440) K/mm3 Lymph # (Auto) 1.1 L (1.2-5.4) K/mm3 [place] # (Auto) 0.4 (0.0-0.8) K/mm3 Eos # (Auto) 0.1 (0.0-0.4) K/mm3 Baso # (Auto) 0.0 (0.0-0.1) K/mm3 Comprehensive Metabolic Panel 05/01/21 Range/Units 04:53 Sodium 137 (137-145) mmol/L Potassium 3.6 (3.6-5.0) mmol/L Chloride 100.1 (98-107) mmol/L Carbon Dioxide 27 (22-30) mmol/L BUN 20 (9-20) mg/dL Creatinine 1.8 H (0.8-1.3) mg/dL Glucose 119 H (75-100) mg/dL Calcium 8.3 L (8.4-10.2) mg/dL - Imaging and Cardiology Echo: report reviewed - Telemetry EKG Rhythm: Paced
--- NOTE | 2021-05-01 11:24 | Nuclear Medicine Report ---
APPROVED REPORT Exam: Nuclear Stress Test Indication: Chest pain Patient Location: [address] [place] [address] Room #: 454 Ht: 6 ft 0 in Wt: 343 lbs BSA: 2.68 m2 HR: 89 bpmBP: 147/107 mmHgBMI: 46.51 Rhythm: Atrial Fibrillation with aberrant conductio or ventricular complexes cannot r/o anterior infarct Medical History Medical History: Diabetes, HTN Stress Test Details Stress Test: Pharmacologic stress testing performed using 0.4 mg of regadenoson per 5 mL given IV over 10 seconds. HR Resting HR: 89 bpm Max HR Achieved: 102 bpm Max Heart Rate (APMHR): 177 bpm Target HR (85% APMHR): 150 bpm % of APMHR: 57 Recovery HR: 92 bpm BP Resting BP: 147/93 mmHg Max BP: 159/107 mmHg Recovery BP: 150/93 mmHg ECG Resting ECG: Atrial Fibrillation with aberrant conduction or premature complexes,with intermittent paced beats noted. Stress ECG: Atrial Fibrillation ST Change: Nondiagnostic resting ST abnormalities Arrhythmia: Atrial fibrillation with paced beats,his baselinre rhythm. Recovery ECG: Atrial Fibrillation Recovery ST Change: Nondiagnostic resting ST abnormalities Clinical Reason for Termination: Completed protocol Stress Symptoms: None NM EXAM: Myocardial Perfusion REST/STRESS Imaging Protocol: Rest Tc-99m/Stress Tc-99m 1 day Resting Data Rest SPECT myocardial perfusion imaging was performed in supine position 45 minutes following the intravenous injection of 10 mCi of Tc-99m Myoview. Time of rest injection: 0845 Pharmacologic Stress Pharmacologic stress test was performed by injecting Regadenoson 0.4 mg IV push followed by the intravenous injection of 28 mCi of Tc-99m Myoview. Time of stress injection: 1020 Stress only was performed in the Supine position. Study Quality Study: excellent Lung Uptake: Normal Perfusion Wall Motion Gatingwas not performed because of underlying atrial fibrillation and paced bests. Nuclear Conclusion ECG Findings: non-diagnostic Clinical Findings: negative for ischemia Left Ventricular Function: not determined. Risk Study: moderate No evidence of ischemia onperfusion studies,with no gated study performed because of underlying irregular heart rate from atrial fibrillation and paced beats.
--- NOTE | 2021-05-01 11:36 | Electrocardiograph Report ---
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 Electronically Signed On 05-01-2021 11:36:09 EST by Andrey Ace
--- NOTE | 2021-05-01 11:36 | Electrocardiograph Report ---
[facility] Test Date: 2021-04-30 Test Time: 07:55:05 Pat Name: ANNA NDIAYE Department: Room: A454 1 Gender: M Contact Center Agent: YOUNG : 1975 Requested By: KAI MARTINS Order Number: [id number] Reading MD: Andrey Ace Measurements Intervals [place] Rate: 99 P: ND: QRS: 11 QRSD: 97 T: 224 QT: 378 QTc: 486 Interpretive Statements Afib/flut and V-paced complexes Nonspecific repol abnormality, diffuse leads Compared to ECG 06/29/2020 04:16:13 No significant change noted. Electronically Signed On 05-01-2021 11:36:33 EST by Andrey Ace
--- NOTE | 2021-05-01 11:39 | Electrocardiograph Report ---
[facility] Test Date: 2021-04-30 Test Time: 11:07:59 Pat Name: ANNA NDIAYE Department: Room: A454 1 Gender: M [employer] Clerk: YOUNG : 1975 Requested By: KAI MARTINS Order Number: [id number] Reading MD: Andrey Ace Measurements Intervals [place] Rate: 94 P: [place]: QRS: 9 QRSD: 95 T: 215 QT: 359 QTc: 449 Interpretive Statements Afib/flut and V-paced complexes Compared to ECG 04/30/2021 07:55:05 No significant change noted. Electronically Signed On 05-01-2021 11:39:18 EST by Andrey Ace
--- NOTE | 2021-05-01 11:40 | Discharge Summary ---
Providers - Providers Date of Admission: 04/30/21 04:03 Date of discharge: 05/01/21 Attending physician: SHEYLA SALEH MD 04/30/21 Consult to Cardiac Rehabilitation [CONS] Routine Reason For Exam: Phase I 04/30/21 04:03 Consult to Cardiology [CONS] Routine Consulting Provider: LANE BOSS Reason For Exam: acs Primary care physician: LOGISTICS SYSTEM ENGINEER Hospitalization Reason for admission: Acute on chronic systolic heart failure Condition: Stable Pertinent studies: Reviewed. Procedures: Nuclear stress test. Hospital course: Patient is a 45-year-old male past medical history of atrial fibrillation on apixaban, systolic heart failure, hypothyroidism, nonischemic cardiomyopathy status post pacemaker/defibrillator, hypertension, morbid obesity who presented to the hospital for worsening chest pain for approximately 3 days in addition to worsening lower extremity edema. In the ED the patient was found to be short of breath and hypoxic requiring supplemental oxygen. The patient received aspirin 325 mg and nitro glycerin. The patient describes his primary care provider discontinuing his Lasix and lisinopril and starting losartan. On presentation the patient had negative troponin x3 and a pro BNP of 3279. A TTE was performed and revealed severely decreased LV systolic function, mild concentric LVH, and severe global hypokinesis of the left ventricle with an EF of 15-20%. Cardiology was consulted for further management. Patient underwent a nuclear stress test that was negative for ischemia. The patient will be restarted on Lasix 20 mg twice daily and .p.o. potassium 40 mg daily. The patient follows with cardiology at [facility]. The patient expresses understanding. The patient is medically cleared for discharge. Disposition: HOME / SELF CARE / HOMELESS Final Discharge Diagnosis (Prints w/discharge instructions): Acute on chronic systolic heart failure, atrial fibrillation on Xarelto, hypothyroidism, nonischemic cardiomyopathy status post pacemaker, morbid obesity, acute hypoxic respiratory failure, hypertension. Time spent for discharge: 45 min Core Measure Documentation - Palliative Care Palliative Care/ Comfort Measures: Not Applicable - Core Measures Any of the following diagnoses?: none - Heart Failure Discharge Requirements CHELSEA/ARB for LVSD if EF <40%: Not Applicable Reason for no CHELSEA/ARB: Renal impairment Beta yajaira at discharge: Yes Exam - Constitutional Vitals: Temp Pulse Resp BP Pulse Ox 97.1 F L 87 18 159/98 94 05/01/21 04:30 05/01/21 04:30 05/01/21 05:00 05/01/21 10:24 05/01/21 05:00 General appearance: Present: no acute distress, obese - EENT Eyes: Present: PERRL, EOM intact ENT: hearing intact, clear oral mucosa, dentition normal - Neck Neck: Present: supple, normal ROM - Respiratory Respiratory effort: normal Respiratory: bilateral: diminished - Cardiovascular Rhythm: irregularly irregular Heart Sounds: Present: S1 & S2 - Extremities Extremities: no ischemia, pulses intact, pulses symmetrical, normal temperature, normal color, Full ROM Extremity abnormal: edema (Trace edema of lower extremities to bilateral callejas) Peripheral Pulses: within normal limits - Abdominal General gastrointestinal: Present: soft, non-tender, non-distended, normal bowel sounds Male genitourinary: Present: deferred - Rectal Rectal Exam: deferred - Integumentary Integumentary: Present: clear, warm, dry - Musculoskeletal Musculoskeletal: strength equal bilaterally - Psychiatric Psychiatric: appropriate mood/affect, intact judgment & insight, memory intact, cooperative - Neurologic Neurologic: CNII-XII intact, moves all extremities - Allied Health Allied health notes reviewed: nursing Plan Activity: advance as tolerated Diet: low salt, other (Fluid restriction of 1.5 L/day) Special Instructions: restrict fluid intake to (1.5 L/day) Additional Instructions: Patient is a 45-year-old male past medical history of atrial fibrillation on apixaban, systolic heart failure, hypothyroidism, nonischemic cardiomyopathy status post pacemaker/defibrillator, hypertension, morbid obesity who presented to the hospital for worsening chest pain for approximately 3 days in addition to worsening lower extremity edema. In the ED the patient was found to be short of breath and hypoxic requiring supplemental oxygen. The patient received aspirin 325 mg and nitro glycerin. The patient describes his primary care provider discontinuing his Lasix and lisinopril and starting losartan. On presentation the patient had negative troponin x3 and a pro BNP of 3279. A TTE was performed and revealed severely decreased LV systolic function, mild concentric LVH, and severe global hypokinesis of the left ventricle with an EF of 15-20%. Cardiology was consulted for further management. Patient underwent a nuclear stress test that was negative for ischemia. The patient will be restarted on Lasix 20 mg twice daily and .p.o. potassium 40 mg daily. The patient follows with cardiology at [facility]. The patient expresses understanding. The patient is medically cleared for discharge. Care Plan Goals: Patient is medically cleared for discharge. Assessment: Patient is a 45-year-old male past medical history of atrial fibrillation on apixaban, systolic heart failure, hypothyroidism, nonischemic cardiomyopathy status post pacemaker/defibrillator, hypertension, morbid obesity who presented to the hospital for worsening chest pain for approximately 3 days in addition to worsening lower extremity edema. In the ED the patient was found to be short of breath and hypoxic requiring supplemental oxygen. The patient received aspirin 325 mg and nitro glycerin. The patient describes his primary care provider discontinuing his Lasix and lisinopril and starting losartan. On presentation the patient had negative troponin x3 and a pro BNP of 3279. A TTE was performed and revealed severely decreased LV systolic function, mild concentric LVH, and severe global hypokinesis of the left ventricle with an EF of 15-20%. Cardiology was consulted for further management. Patient underwent a nuclear stress test that was negative for ischemia. The patient will be restarted on Lasix 20 mg twice daily and .p.o. potassium 40 mg daily. The patient follows with cardiology at [facility]. The patient expresses understanding. The patient is medically cleared for discharge. Follow up with: PRIMARY MD CHYNA [Primary Care Provider] - 7 Days Forms: Work/School Release Form Prescriptions: Spironolactone [Aldactone] 25 mg PO QDAY #30 tablet
[2021-05-01 11:53] VITALS: BP 142/78
[2021-05-01] MEDS: SPIRONOLACTONE 25 MG TAB PO SCH (12:17)
[2021-05-01] MEDS: APIXABAN 5 MG TAB PO SCH (12:18)
[2021-05-01] MEDS: ASPIRIN EC 325 MG TAB PO SCH (12:18)
[2021-05-01] MEDS: METOPROLOL TARTRATE 50 MG TAB PO SCH (12:18)
== END 2021-05-01 13:02 | disposition home or self-care (01) | DRG 291 ==
LOC: ED 23:45 → 4A 04-30 04:03
PROVIDERS: ADMIT Hospitalist; ATTEND Student in an Organized Health Care Education/Training Program
DX: I13.0 Hypertensive heart and chronic kidney disease with heart failure and stage 1 through stage 4 chronic kidney disease, or unspecified chronic kidney disease (principal); I50.23 Acute on chronic systolic (congestive) heart failure; J96.01 Acute respiratory failure with hypoxia; I24.9 Acute ischemic heart disease, unspecified; E03.9 Hypothyroidism, unspecified; I48.91 Unspecified atrial fibrillation; E78.00 Pure hypercholesterolemia, unspecified; E78.5 Hyperlipidemia, unspecified; N18.2 Chronic kidney disease, stage 2 (mild); G47.33 Obstructive sleep apnea (adult) (pediatric); Z68.41 Body mass index [BMI] 40.0-44.9, adult; Z20.822 Contact with and (suspected) exposure to COVID-19; Z88.8 Allergy status to other drugs, medicaments and biological substances; I42.8 Other cardiomyopathies; E66.01 Morbid (severe) obesity due to excess calories
CPT/HCPCS: 36415; 71046; 78452; 80048; 80053; 83690; 83880; 84484; 85025; 85610; 93005; 93010; 93017; 93306; G0378; A9502; C8929; J1200; J1940; J2270; J2405; J2785